=== PATIENT | female | born 1990 | race Caucasian/White ===

== ENCOUNTER 2019-08-10 11:35 | Inpatient (IN) ==
--- OUTSIDE RECORDS SUMMARY | 2019-08-10 11:42 | External Medical Summary | Continuity of Care Document ---
:1990 Author Name John Grover, Provider Address Unavailable Unavailable , Care Team Providers Name Role Phone Marcial Grover, Maikel Unavailable [email or web address] Active medical history not documented Allergies and Adverse Reactions Allergy history not documented Medications Medications not documented Procedures Procedures not documented Immunizations Immunizations not documented Plan of Treatment Planned Observations Planned Goals not documented Results No Known Results Results not documented
[2019-08-10] MEDS ORDERED: OXYTOCIN 30 UNITS/500 ML BAG IV PRN ×3 (13:26→22:29)
[2019-08-10] MEDS: LACTATED RINGER'S 1,000 ML IV PRN ×2 (13:43→15:11)
[2019-08-10] MEDS ORDERED: fentaNYL citrate 100 MCG/2 ML VIAL ONE (13:50)
[2019-08-10] MEDS ORDERED: ePHEDrine sulfate 50 MG/ML AMP ONE (13:51)
[2019-08-10] MEDS ORDERED: fentaNYL 2MCG/ML ROPIV 1.25MG/ML 100 ML BAG EPI ONE (13:51)
[2019-08-10] MEDS ORDERED: BUPIVACAINE 0.25% 30 ML VIAL ONE (13:51)
[2019-08-10 13:57] LABS: Hematocrit (blood only) 37.2 % (37-47); Hemoglobin 12.5 g/dL (12.0-16.0); Mean Corpuscular Volume 83.4 fL (80-100); Mean Platelet Volume 11.7 fL (7.4-10.4); Platelet Count 158 K/uL (130-400); RDW Coefficient of Variation 12.4 % (11.5-14.5); RDW Standard Deviation 37.6 fL (36.4-46.3); Red Blood Count 4.46 M/uL (4.2-5.4); White Blood Count 11.22 K/uL (4.8-10.8)
[2019-08-10 14:14] LABS: Mean Corpuscular Hgb Conc 33.6 g/dL (32-36)
--- NOTE | 2019-08-10 14:17 | Anesthesiology Consultation ---
Date of Service August 10, 2019 Assessment & Plan (1) Encounter for pre-operative examination: Chart Review Chart Review: Acceptable Risk for Labor Epidural Consults Requested none ASA ASA2 Proposed Anesthesia Anesthesia Type: Labor Epidural Risk / Benefits Reviewed With: PT / POA / Parent / Guardian, Accepts Plan and Informed Consent Obtained History Height/Weight Height: 5 ft 6 in Weight: 65.771 kg Allergies Allergy/AdvReac Type Severity Reaction Status Date / Time AUGMENTIN-SWELLING AND HIVES Allergy Unknown Uncoded 12/21/03 13:23 Medications Home Medications Medication Instructions Recorded Confirmed Last Taken venlafaxine [Effexor XR] 37.5 mg PO DAILY 08/10/19 08/10/19 08/10/19 09:30 Active Medications Generic Name Dose Route Start Last Admin Trade Name Freq PRN Reason Stop Dose Admin Lactated Ringer's 1,000 mls @ 125 mls/hr 08/10/19 13:26 08/10/19 13:43 Lr IV 08/12/19 13:25 999 mls/hr .Q8H PRN Administration L&D Protocol Protocol Exercise / Class Metabolic Activity II 4-5 Yardwork/Stairs/Walk up hill Past Family History Family History Aunt Breast cancer Father Hypertension Past Surgical History Surgical History H/O wisdom tooth extraction (~11/24/07) History of extraction of renal calculus (~06/28/08) Past Anesthesia History No Hx of Anesthesia Complications and No Family Hx of Anesthesia Complications History of PONV No Hx of PONV and No Hx of Motion Sickness Social History Smoking Status: Never smoker Do You Dip or Chew Tobacco: No Hx Alcohol Use: No Hx Substance Use: No Physical Exam Vital Signs Last Vital Signs Temp 98.6 F 08/10/19 12:09 Pulse 85 08/10/19 14:06 Resp 20 08/10/19 12:09 BP 133/88 08/10/19 14:06 ENMT Mouth: no dentition abnormality Thyromental Distance: > or= 3.5 Finger Breadths Mallampati Class: II Neck normal visual inspection Respiratory normal respiratory effort Auscultation: lungs clear to auscultation bilaterally Cardiovascular Rate/Rhythm: regular rate and regular rhythm Testing Laboratory Results 08/10/19 13:40
[2019-08-10] MEDS ORDERED: NALOXONE HCL 1 MG in SODIUM CHLORIDE 0.9% 1000ML 1,000 ML IV PRN (14:39)
[2019-08-10] MEDS ORDERED: NALOXONE HCL 0.4 MG/1 ML VIAL/CARP IV PRN (14:39)
[2019-08-10] MEDS ORDERED: ONDANSETRON INJ 2 MG/ML 2 ML VIAL IV PRN (14:39)
[2019-08-10] MEDS ORDERED: ePHEDrine sulfate 50 MG/ML AMP IV PRN (14:39)
[2019-08-10] MEDS ORDERED: fentaNYL 2MCG/ML ROPIV 1.25MG/ML 100 ML BAG EPI PRN (14:39)
[2019-08-10] MEDS ORDERED: NALBUPHINE HCL INJ 10 MG/ML AMP IV PRN (14:39)
[2019-08-10] MEDS ORDERED: DiphenhydrAMINE HCL 50 MG/ML VIAL IV PRN (14:39)
[2019-08-10] MEDS ORDERED: BENZOCAINE 20% AER SPR 82.5 GM CAN EXT PRN (22:29)
[2019-08-10] MEDS ORDERED: ACETAMINOPHEN 325 MG TAB PO PRN (22:29)
[2019-08-10] MEDS ORDERED: ACETAMINOPHEN W/CODEINE #3 1 TAB PO PRN (22:29)
[2019-08-10] MEDS ORDERED: bisacodyL 10 MG SUPP PR PRN (22:29)
[2019-08-10] MEDS ORDERED: HYDROCORTISONE ACETATE 25 MG SUPP PR PRN (22:29)
[2019-08-10] MEDS ORDERED: SUPERCREAM 0.870% 15 GM JAR EXT PRN (22:29)
[2019-08-10] MEDS ORDERED: DIPHTHERIA/TETANUS/PERTUSSIS 0.5 ML SYR/VIAL IM ONE (22:29)
[2019-08-10] MEDS ORDERED: OXYCODONE/ACETAMINOPHEN 5mg/325mg TAB PO PRN (22:29)
[2019-08-10] MEDS: IBUPROFEN 600 MG TAB PO PRN (23:20)
--- NOTE | 2019-08-11 03:24 | Delivery Summary ---
DATE OF OPERATION: 08/10/2019 The patient is a 29-year-old 1, para 1. Blood type is O positive, vaginal beta strep negative. She was admitted in active labor at 40 weeks and 1 day gestation. Soon after admission, membranes ruptured spontaneously during the exam and she was given epidural anesthesia from which she obtained good pain relief. Her labor was then augmented with Pitocin, she went to full dilatation, pushed out a live male via direct occiput anterior position over an intact perineum. was suctioned through the mouth and the nose. Shoulders were delivered without difficulty. Cord was clamped, cut by the father. Cord blood was taken. IV Pitocin was used to contract the uterus, the placenta was removed intact. There was a small superficial first degree laceration at about 5 o'clock in the vaginal introitus and this was repaired with a running 2-0 Vicryl. Following this, hemostasis was good. ESTIMATED BLOOD LOSS: 100 mL. Apgars deferred to the nurses. The patient tolerated the procedure well. I attest to the content of the Intraoperative Record and any orders documented therein. Any exception s are noted below.
[2019-08-11 06:53] LABS: Hematocrit (blood only) 33.2 % (37-47); Hemoglobin 11.1 g/dL (12.0-16.0); Mean Corpuscular Hemoglobin 28.2 pg (25-34); Mean Corpuscular Hgb Conc 33.4 g/dL (32-36); Mean Corpuscular Volume 84.3 fL (80-100); Mean Platelet Volume 11.9 fL (7.4-10.4); Platelet Count 129 K/uL (130-400); RDW Coefficient of Variation 12.5 % (11.5-14.5); RDW Standard Deviation 38.2 fL (36.4-46.3); Red Blood Count 3.94 M/uL (4.2-5.4); White Blood Count 15.28 K/uL (4.8-10.8)
[2019-08-11] MEDS: IBUPROFEN 600 MG TAB PO PRN ×2 (08:51→20:05)
[2019-08-11] MEDS: DOCUSATE SODIUM 100 MG CAP PO SCH ×2 (08:51→20:04)
[2019-08-11] MEDS: PRENATAL VITAMIN 1 TAB PO SCH (08:51)
[2019-08-11] MEDS: VENLAFAXINE HCL XR 37.5 MG CAPXR PO SCH (08:51)
--- NOTE | 2019-08-11 09:02 | Anesthesia Procedure Note ---
Date of Service August 11, 2019 Anesthesia Post Epidural Note Vital Signs Vital Signs: Temp Pulse Resp BP Pulse Ox 36.5 C 79 14 139/86 100 08/11/19 07:47 08/11/19 07:47 08/11/19 07:47 08/11/19 07:47 08/11/19 07:47 Pain Intensity Abdomen: Pain Intensity: 1 Notes Mental Status: alert / awake / arousable and participated in evaluation Patient Amnestic to Procedure: Yes Nausea / Vomiting: adequately controlled Pain: adequately controlled Airway Patency, RR, SpO2: stable & adequate BP & HR: stable & adequate Hydration State: stable & adequate Anesthetic Complications: no major complications apparent and Pt Satisfied with anesthetic care
[2019-08-11] MEDS ORDERED: bisacodyL 5 MG TABEC PO SCH (20:00)
[2019-08-12 06:21] LABS: Hematocrit (blood only) 36.9 % (37-47); Hemoglobin 12.2 g/dL (12.0-16.0)
[2019-08-12] MEDS: DOCUSATE SODIUM 100 MG CAP PO SCH (08:49)
[2019-08-12] MEDS: PRENATAL VITAMIN 1 TAB PO SCH (08:49)
[2019-08-12] MEDS: VENLAFAXINE HCL XR 37.5 MG CAPXR PO SCH (08:49)
--- NOTE | 2019-08-12 10:25 | Obstetrical Progress Note ---
Date of Service August 12, 2019 Assessment & Plan Admission and Anticipated Discharge Date Admission Date: August 10, 2019 Physical Exam Constitutional: WD/WN, vitals as above comfortable abdomen soft no edema neg Deric's for discharge Results & Data ([facility]) Vital Signs (Past 12 Hours) Vital Signs Temp Pulse Resp BP Pulse Ox 08/12/19 09:45 36.4 C L 76 18 128/80 100 08/11/19 23:15 36.6 C 68 18 126/76
== END 2019-08-12 14:30 | disposition home or self-care (01) | DRG 807 ==
LOC: OPB 11:35 → 4S1 11:40 → 4S2 08-11 01:00

== ENCOUNTER 2023-05-27 07:16 | Inpatient (IN) ==
[2023-05-27] MEDS ORDERED: SODIUM CHLORIDE 0.9% PF INJ 10 ML VIAL ONE (07:27)
[2023-05-27] MEDS ORDERED: fentaNYL citrate PF 100 MCG/2 ML VIAL ONE (07:27)
[2023-05-27] MEDS ORDERED: ePHEDrine sulfate 50 MG/ML AMP ONE (07:27)
[2023-05-27] MEDS ORDERED: fentANYL 2 MCG/ML BUPIVacaine 0.125%-NSS 100ML BAG ONE (07:28)
[2023-05-27] MEDS ORDERED: BUPIVACAINE 0.25% PF 30 ML VIAL ONE (07:28)
[2023-05-27] MEDS ORDERED: LIDOCAINE 2%/EPINEPHRINE 1:200,000 20 ML PF ONE (07:28)
[2023-05-27] MEDS ORDERED: OXYTOCIN 30 UNITS/NSS 30 UNITS/500 ML BAG IV PRN ×3 (07:34→17:13)
[2023-05-27] MEDS ORDERED: LIDOCAINE 1% LOCAL 20 ML VIAL INFIL PRN (07:34)
[2023-05-27] MEDS: LACTATED RINGER'S 1,000 ML IV PRN ×3 (07:40→13:59)
[2023-05-27] MEDS ORDERED: ROPIVACAINE 0.5% PF 5 MG/ML 20 ML VIAL EPI PRN (08:06)
[2023-05-27] MEDS ORDERED: NALOXONE HCL 1 MG in SODIUM CHLORIDE 0.9% 1,000 ML IV PRN (08:06)
[2023-05-27] MEDS ORDERED: SODIUM CHLORIDE 0.9% PF INJ 10 ML VIAL EPI STA (08:06)
[2023-05-27] MEDS ORDERED: NALOXONE HCL 0.4 MG/1 ML VIAL/CARP IV PRN (08:06)
[2023-05-27] MEDS ORDERED: BUPIVACAINE 0.25% PF 30 ML VIAL EPI STA (08:06)
[2023-05-27] MEDS ORDERED: diphenhydrAMINE 50 MG/ML VIAL IV PRN (08:06)
[2023-05-27] MEDS ORDERED: NALBUPHINE HCL 5 MG in SYRINGE 0 ML IV PRN (08:06)
[2023-05-27] MEDS ORDERED: fentaNYL citrate PF 100 MCG/2 ML VIAL EPI STA (08:06)
[2023-05-27] MEDS ORDERED: LIDOCAINE 2% MPF LOCAL 5 ML VIAL EPI PRN (08:06)
[2023-05-27] MEDS ORDERED: ePHEDrine sulfate 50 MG/ML AMP IV PRN (08:06)
[2023-05-27] MEDS ORDERED: SODIUM CHLORIDE 0.9% PF INJ 10 ML VIAL EPI PRN (08:06)
[2023-05-27] MEDS ORDERED: fentaNYL citrate PF 100 MCG/2 ML VIAL EPI PRN (08:06)
[2023-05-27] MEDS ORDERED: LIDOCAINE 2%/EPINEPHRINE 1:200,000 20 ML PF EPI STA (08:06)
[2023-05-27] MEDS ORDERED: fentANYL 2 MCG/ML BUPIVacaine 0.125%-NSS 100ML BAG EPI PRN (08:06)
[2023-05-27] MEDS ORDERED: ONDANSETRON INJ 2 MG/ML 2 ML VIAL IV PRN (08:06)
[2023-05-27] MEDS ORDERED: BUPIVACAINE 0.25% PF 30 ML VIAL EPI PRN (08:06)
--- NOTE | 2023-05-27 08:07 | Anesthesiology Consultation ---
Date of Service May 27, 2023 Assessment & Plan ASA ASA2 Proposed Anesthesia Anesthesia Type: Labor Epidural Risk / Benefits Reviewed With: PT / POA / Parent / Guardian, Accepts Plan and Informed Consent Obtained History Height/Weight Height: 5 ft 6 in Weight: 64.864 kg Allergies Allergy/AdvReac Type Severity Reaction Status Date / Time AUGMENTIN-SWELLING AND HIVES Allergy Unknown Rash Uncoded 05/27/23 07:44 Medications Home Medications Medication Instructions Recorded Confirmed Last Taken venlafaxine 37.5 mg 37.5 mg PO DAILY 08/10/19 05/27/23 05/27/23 capsule,extended release 24 hr (Effexor XR) Active Medications Generic Name Dose Route Start Last Admin Trade Name Freq PRN Reason Stop Dose Admin Lactated Ringer's 1,000 mls @ 125 mls/hr 05/27/23 07:34 05/27/23 09:02 Lr IV 05/29/23 07:33 125 mls/hr .Q8H PRN Infusion L&D Protocol Protocol Past Medical History Medical History Dysplastic nevus of trunk Anxiety Normal endoscopy (~03/27/14) Encounter for diagnostic colonoscopy due to change in bowel habits (~03/27/14) Exercise / Class Metabolic Activity II 4-5 Yardwork/Stairs/Walk up hill Past Family History Family History Aunt Breast cancer Father Hypertension Past Surgical History Surgical History History of colposcopy with cervical biopsy History of extraction of renal calculus (~06/28/08) H/O wisdom tooth extraction (~11/24/07) Past Anesthesia History No Hx of Anesthesia Complications and No Family Hx of Anesthesia Complications History of PONV No Hx of PONV and No Hx of Motion Sickness Social History Smoking Status: Never smoker Do You Dip or Chew Tobacco: No Hx Alcohol Use: No Hx Substance Use: No substance use type: does not use Review of Systems denies fever/cough/ colds/ chest pain/ SOB/ TORSTEN denies TORSTEN Physical Exam Vital Signs Last Vital Signs Temp 36.7 C 05/27/23 07:40 Pulse 82 05/27/23 09:11 Resp 18 05/27/23 07:40 BP 120/79 05/27/23 09:11 Pulse Ox 100 05/27/23 09:11 ENMT Mouth: no TMJ abnormality and no dentition abnormality Thyromental Distance: > or= 3.5 Finger Breadths Mallampati Class: II Neck neck extension not limited Respiratory normal respiratory effort; no respiratory distress Auscultation: lungs clear to auscultation bilaterally Cardiovascular Rate/Rhythm: regular rate and regular rhythm Neurologic moves all extremities Psychiatric Orientation: alert and oriented x 3 Testing Laboratory Results 05/27/23 08:02
[2023-05-27 08:18] LABS: Hematocrit (blood only) 34.7 % (37.0-47.0); Hemoglobin 11.6 g/dl (12.0-16.0); Mean Corpuscular Hemoglobin 27.4 pg (25.0-34.0); Mean Corpuscular Hgb Conc 33.4 g/dL (32.0-36.0); Mean Platelet Volume 10.9 fL (9.4-12.4); Platelet Count 185 K/uL (130-400); RDW Coefficient of Variation 12.4 % (11.5-14.5); RDW Standard Deviation 36.6 fL (36.4-46.3); Red Blood Count 4.23 M/uL (4.20-5.40); White Blood Count 10.31 K/ul (4.8-10.8)
--- OUTSIDE RECORDS SUMMARY | 2023-05-27 10:05 | External Medical Summary ---
Author Name Unknown Address Unknown Organization K01:[facility] [place] [facility] [address] [facility] [address] Laboratory Report Ordering Provider Test Date Status MARY CLEMENTE 04/29/2023 15:58:09 Final Observation Date Value Abnormality Reference (Units ) Status Streptococcus agalactiae DNA [Presence] in Specimen by BINH with probe detection 04/29/2023 15:58:09 Negative Negative Final No Group B Streptococcus det ected by culture-enhanced PCR (amplified probe).
The collection of vaginal/rectal swab specimen combinations (FDA approved specimen type) is optimal for the detection of Group B Streptococcus. Single source collection (vaginal only or rectal only) or alternate specimen sources may lead to false negative results. Performing Location [facility] [place] [facility] [address] [facility] [address]
--- OUTSIDE RECORDS SUMMARY | 2023-05-27 10:05 | External Medical Summary | Summary of Care ---
Author Name Unknown Organization [facility] Address [address] [place] [address] Phone [phone] Care Team Providers Care Construction Lineman Name Role Phone Clifford Bose MD Primary Care Provider Reason for Visit * Reason Comments Return Visit Encounter Details Date Type Department Care Team (Late st Contact Info) Description 05/06/2023 10:15 AM EST Office Visit Gynecology/Obstetric s Subha Sorensen [address] [place] [address] Katherine Urbina PA-C [address] [place] [address] Normal in third trimester*; Anxiety during ; History of gestational diabetes in prior , currently ; Normal in third trimester [Z34.93] Allergies Active Allergy Reactions Criticality Noted Date Comments Amoxicillin-Pot Clavulanate Hives Medium 07/29/19 14 documented as of this encounter (statuses as of 05/06/2023) Medications Medication Sig Dispensed Refills Start Date End Date Status Vitamin 27-0.8 MG Oral Tablet Take by mouth. 0 Active Venlafaxine HCl ER 37.5 MG Oral Capsule Extended Release 24 Hour (Effexor XR)Indications:Anxie ty TAKE 1 CAPSULE EVERY DAY. DO NOT CUT, CRUSH OR CHEW. 90 Capsule 0 03/11/2023 Active Breast PumpIndications:Kellee st feeding status of mother Z39.1, AMOL 05/22/23. Double electric pump 1 Each 0 03/17/2023 Active documented as of this encounter (statuses as of 05/06/2023) Active Problems Problem Noted Date Diagnosed Date Normal 11/12/2022 Anxiety during 11/12/2022 Overview: Effexor History of gestational diabe juanita in prior , currently 11/12/2022 H/O dysplastic nevus 03/13/2021 Overview: Mildly atypical nevui (R upper back), L upper abdomen, L distal thigh, dysplastic nevus on back in 6th grade) Anxiety Estimated Date of Delivery Comme nts Yes 05/22/2023 Based on last me nstrual period of 08/15/2022 (Exact Date) documented as of this encounter (statuses as of 05/06/2023) Resolved Problems Problem Noted Date Diagnosed Date Resolved Date Anxiety in , antepartum 12/24/2018 11/23/2019 Overview: At NOB taking Effexor, doing well, desires to continue , normal first 12/24/201811/13 Overview: Tdap vaccine administered 07/12/2019 Anais Stallings RN IOL scheduled for 08/16/19 Reema Romero LPN Last Assessment & Plan: Patient given flu vaccine. 06/09/2019 Verónica Godoy LPN Encounter for surveillance of abnormal nevi 03/01/2018 11/23/2019 Overview: Mildly dysplastic nevus (R upper back), dysplastic nevus on back in 6th grade? Encounter for surveillance of abnormal nevi 02/23/2017 01/01/2018 Overview: Mildly dysplastic nevus (R upper back) documented as of this encounter (statuses as of 05/06/2023) Immunizations Name Administration Dates Next Due COVID-19 mRNA, LNP-s, No Pre serve, 2-Dose Series (Moderna) 11/08/2020,10/09/2020 COVID-19, mRNA, LNP-s, PF, B ooster, 100mcg/0.5mg (Moderna) 06/06/2021 DTaP Dipth/Tet/Acell Pertussis (Infanrix), Peds 05/15/1994,01/06/1991,1989,1989,1989 HEP B - Hepatitis B (Adole/H igh Risk Ped, 11-15 yrs 09/21/2001,05/26/2001,04/15/2001 HPV Vaccine, 4-Valent 06/24/2012,12/24/2011,10/14 Haemophilius B (HIB), unspecified 09/16/1990 IPV - Polio Virus Vaccine (Inact) 1993,01/06/1990,1989,1989 MMR - Measles/Mumps/Rubella Vaccine 05/15/1994,0 09/16/1990 SEASONAL INFLUENZA, PF, 6 M & Above, IM , (FLULAVAL or FLUZONE) 03/17/2023,05/24/2020 Seasonal Influenza, Quadriva lent, No Preserve, IM 06/09/2019,03/15/2017,03/25/2016 Seasonal Influenza, Split, I IV3, With Preserve, Inj 02/27/2013 TD, Preservative Free 09/12/2000 TDAP (age 10 and older)(Boostrix) 03/03/2023,,02/07/2012 Varicella Vaccine (Chicken Pox) 03/15/1995 documented as of this encounter Social History Tobacco Use Types Packs/Day Years Used Date Smoking Tobacco: Never Smokeless Tobacco: Never Alcohol Use Standard Drinks/Week Comments No 0 (1 standard drink = 0.6 oz pur e alcohol) PHQ-2 Answer Date Recorded PHQ-2 Score -1 03/05/2020 Hunger Vital Sign Answer Date Recorded Within the past 12 months, y ou worried that your food would run out before you got the money to buy more. Never true 03/03/20 23 Within the past 12 months, t he food you bought just didn't last and you didn't have money to get more. Never true 03/03/2023 Sontag Depression Scale Answer Date Recorded Sontag Depression Scale Total 3 03/17/2023 The thought of harming myself has occurred to me . Never 03/17/2023 Estimated Date of Delivery Comme nts Yes 05/22/2023 Based on last me nstrual period of 08/15/2022 (Exact Date) Sex and Gender Information Value Date Recorded Sex Assigned at Female 03/17/2023 1:38 PM EDT Gender Identity Female 03/17/2023 1:38 PM EDT Sexual Orientation Straight 03/17/2023 1: 38 PM EDT Job Start Date Occupation Industry Not on file Not on file Not on file documented as of this encounter Last Filed Vital Signs Vital Sign Reading Time Taken Comments Blood Pressure 102/76 05/06/2023 10:02 AM EST Pulse - - Temperature - - Respiratory Rate - - Oxygen Saturation - - Inhaled Oxygen Concentration - - Weight 62.1 kg (137 lb) 05/06/2023 10:02 AM EST Height 167.6 cm (5' 6") 05/06/2023 10:02 AM EST Body Mass Index 22.11 05/06/2023 10:02 AM EST documented in this encounter Progress Notes * Katherine Urbina PA-C - 05/06/2023 10:51 AM EST 37w5d Denies concerns. Denies LOF, VB. Reports intermittent contractions over last week. None this AM. Not severely painful, no timing or regularity. Labor precautions reviewed. FHT 160's with doppler -- NST completed as below ASSESSMENT assessment with Non-stress Test completed on 05/06/2023 at 37.5 weeks gestation for indication of tachycardia with doppler heart baseline: 140 bpm Variability: Moderate Decelerations: absent Accelerations: present Contractions: Present x 1, not felt by patient NST start time: 10:19 NST stop time: 10:46 NST strip reviewed, interpreted, and approved by OB provider, Katherine Urbina PA-C. NST strip stored in clinic storage file RTC in 1 week Katherine Urbina PA-C * Maria Elena Neumann LPN - 05/06/2023 10:10 AM EST 37w5d Denies concerns documented in this encounter Plan of Treatment Upcoming Encounters Date Type Department Care Team (Late st Contact Info) Description 05/13/2023 9:15 AM EST Office Visit Gynecology/Obstetrics [facility] [address] [place], [place] [address] Anais Olson, [place] [address] [facility] [place] [address] 2023 1:30 PM EST Office Visit Gynecology/Obstetrics [facility] [address] [place], [place] [address] More English CRNP [address] [place], [place] [address] 06/19/2023 3:30 PM EST Telemedicine Gynecology/Obstetrics [facility] [address] [place] [address] Manuela Dave, [place] [address] [facility] [place] [address] 07/06/2023 10:30 AM EST Office Visit Gynecology/Obstetrics [facility] [address] [place] [address] More English CRNP [address] [place], [place] [address] 08/31/2023 3:40 PM EDT Office Visit Dermatology [address] [place] [address] Aicha Solorzano PA-C [address] [place] [address] [place] [address] 12/10/2023 4:20 PM EDT Office Visit Family Medicine [address] [place] [phone] Sheela Rose MD [address] [place] [address] [place] [address] Health Maintenance Due Date Last Done Comments Depression Screening 11/22/2020 11/23/2019 COVID-19 Vaccine ( season) 2023 06/06/2021, 11/08/2020, 10/09/2020 Pap Smear 06/12/2025 06/12/2022, 02/13, 12/19/2019, Additional history exists Cervical Cancer Screening 06/12/2027 HPV/Co-Test 06/12/2027 06/12/2022 DTaP,Tdap,and Td Vaccines (9 - Td or Tdap) 03/03/2033 03/03/2023, 07/12/2019, 02/07/2012, Additional history exists Hepatitis B Completed 09/21/2001, 02/2002, 05/26/2001, Additional history exists GARDASIL-HPV IMMUNIZATION SERIES Completed 06/24/2012, 12/24/2011, 11/11/2011 Influenza Vaccine (FLU shot) Completed 08/2022, 05/24/2020, 06/09/2019, Additional history exists MENINGOCOCCAL (MENACTRA/MENVEO) Aged Out No longer eligible based on patient's age to complete this topic Pneumococcal Vaccine: Pediatrics (0 to 5 Years) and At-Risk Patients (6 to 64 Years) Aged Out No longer eligible based on patient's age to complete this topic documented as of this encounter Medical Devices Not on filedocumented as of this encounter Visit Diagnoses Diagnosis Normal in third trimester [Z34.93]- Primary Anxiety during History of gestational diabetes in prior , currently with other poor obstetric history documented in this encounter Care Teams Construction Lineman Relationship Specialty Start Date End Date Clifford Bose MD PCP - General Family Medicine 11/04/18 documented as of this encounter
--- OUTSIDE RECORDS SUMMARY | 2023-05-27 10:05 | External Medical Summary | Summary of Care ---
Author Name Unknown Organization [facility] Address [address] [place] [address] Phone [phone] Care Team Providers Care Document Management Consultant Name Role Phone Clifford Bose MD Primary Care Provider Reason for Visit * Reason Comments Return Visit Encounter Details Date Type Department Care Team (Late st Contact Info) Description 04/29/2023 3:15 PM EST Office Visit Gynecology/Obstetric s [facility] Sorensen [address] [place] [address] Irma Ramsay CRNP [address] [facility] [place] [address] Normal in third trimester*; Anxiety during ; History of gestational diabetes in prior , currently Allergies Active Allergy Reactions Criticality Noted Date Comments Amoxicillin-Pot Clavulanate Hives Medium 07/29/19 14 documented as of this encounter (statuses as of 04/29/2023) Medications Medication Sig Dispensed Refills Start Date [...] as of this encounter (statuses as of 04/29/2023) Active Problems Problem Noted Date Diagnosed Date [...] as of this encounter (statuses as of 04/29/2023) Resolved Problems Problem Noted Date Diagnosed Date [...] as of this encounter (statuses as of 04/29/2023) Immunizations Name Administration Dates Next Due COVID-19 [...] money to get more. Never true 03/03/2023 Hewlett Depression Scale Answer Date Recorded Hewlett Depression Scale Total 3 03/17/2023 The thought [...] Sign Reading Time Taken Comments Blood Pressure 100/66 04/29/2023 3:08 PM EST Pulse - - Temperature - - Respiratory Rate - - Oxygen Saturation - - Inhaled Oxygen Concentration - - Weight 62.9 kg (138 lb 9.6 oz) 04/29/2023 3:08 P M EST Height 167.6 cm (5' 6") 04/29/2023 3:08 PM EST Body Mass Index 22.37 04/29/2023 3:08 PM EST documented in this encounter Progress Notes * Irma Ramsay CRNP - 04/29/2023 3:23 PM EST 36w5d Complaints: none Feeling well overall. Good FM. No contractions, bleeding, or LOF. GBS today. Pump House Engineer Documentation Provider requested felt hat mellowing machine operator. Name of felt hat mellowing machine operator: JOSH Berg * Bev Hart LPN - 04/29/2023 3:11 PM EST 36w5d GBS today, pt denies any concerns. documented in this encounter Plan of Treatment Upcoming Encounters Date Type Department Care Team (Late st Contact Info) Description 05/06/2023 10:15 AM EST Office Visit Gynecology/Obstetrics Subha Sorensen [address] [place] [address] Katherine Urbina PA-C [address] [place] [address] 05/13/2023 9:15 AM EST Office Visit Gynecology/Obstetrics [facility] [address] [facility] [place] [address] Anais Olson, [facility] [address] [place] [address] 2023 1:30 PM EST Office Visit Gynecology/Obstetrics [facility] [address] [facility] [place] [address] More English CRNP [facility] [place] [address] 08/31/2023 3:40 PM EDT Office Visit Dermatology [address] [place] [address] Aicha Solorzano PA-C [address] [place] [address] [place] [address] 12/10/2023 4:20 PM EDT Office Visit Family Medicine [address] [place] [phone] Sheela Rose MD [address] [place] [address] [place] [address] Scheduled Orders Name Type Priority Associated Diagnoses Orde r Schedule GROUP B STREP CULTURE/PCR Lab Routine Normal in third trimester Ordered: 04/29/2023 Health Maintenance Due Date Last Done Comments [...] encounter Visit Diagnoses Diagnosis Normal in third trimester- Primary Anxiety during History of gestational diabetes in prior , currently with other poor obstetric history documented in this encounter Care Teams Document Management Consultant Relationship Specialty Start Date End Date Clifford Bose MD PCP - General Family Medicine 11/04/18 documented as of this encounter
--- OUTSIDE RECORDS SUMMARY | 2023-05-27 10:05 | External Medical Summary | Summary of Care ---
Author Name Unknown Organization [facility] Address [address] [place] [address] Phone [phone] Care Team Providers Care Supervisor Operations Name Role Phone Clifford Bose MD Primary Care Provider Reason for Visit * Reason Comments Return Visit Encounter Details Date Type Department Care Team (Late st Contact Info) Description 04/29/2023 3:15 PM EST Office Visit Gynecology/Obstetric s [facility] Sorensen [address] [place] [address] Irma Ramsay CRNP [address] [place] [address] Normal in third trimester*; Anxiety during ; [...] money to get more. Never true 03/03/2023 Herman Depression Scale Answer Date Recorded Herman Depression Scale Total 3 03/17/2023 The thought [...] No contractions, bleeding, or LOF. GBS today. [employer] Support Documentation Provider requested jig maker. Name of jig maker: JOSH Berg * Bev Hart LPN - 04/29/2023 3:11 PM EST 36w5d GBS today, pt denies any concerns. documented in this encounter Plan of Treatment Upcoming Encounters Date Type Department Care Team (Late st Contact Info) Description 05/06/2023 10:15 AM EST Office Visit Gynecology/Obstetrics Subha Sorensen [address] [place] [address] Katherine Urbina PA-C [address] [place] [address] 05/13/2023 9:15 AM EST Office Visit Gynecology/Obstetrics [facility] [address] [facility] [place] [address] Anais Olson, [facility] [address] [place] [address] 2023 1:30 PM EST Office Visit Gynecology/Obstetrics [facility] [address] [facility] [place] [address] More English CRNP [facility] [place] [address] 08/31/2023 3:40 PM EDT Office Visit Dermatology [address] [place] [address] Aicha Solorzano PA-C [address] [place] [address] [place] [address] 12/10/2023 4:20 PM EDT Office Visit Family Medicine [address] [place] [phone] Sheela Rose MD [address] [place] [address] [place] [address] Pending Results Name Type Priority Associated Diagnoses Date /Time GROUP B STREP CULTURE/PCR Lab Routine Normal in third trimester 04/29/2023 3:58 PM EST Health Maintenance Due Date Last Done Comments [...] history documented in this encounter Care Teams Supervisor Operations Relationship Specialty Start Date End Date Clifford Bose MD PCP - General Family Medicine 11/04/18 documented as of this encounter
--- OUTSIDE RECORDS SUMMARY | 2023-05-27 10:05 | External Medical Summary | Summary of Care ---
Author Name Unknown Organization [facility] Address [address] [place] [address] Phone [phone] Care Team Providers Care Learning Specialist Name Role Phone Clifford Bose MD Primary Care Provider Reason for Visit * Reason Comments Return Visit Encounter Details Date Type Department Care Team (Late st Contact Info) Description 04/15/2023 4:30 PM EDT Office Visit Gynecology/Obstetric s Subha Sorensen [address] [place] [address] Katherine Urbina PA-C [address] [place] [address] Normal in third trimester*; Anxiety during ; History of gestational diabetes in prior , currently Allergies Active Allergy Reactions Criticality Noted Date Comments Amoxicillin-Pot Clavulanate Hives Medium 07/29/19 14 documented as of this encounter (statuses as of 04/15/2023) Medications Medication Sig Dispensed Refills Start Date [...] as of this encounter (statuses as of 04/15/2023) Active Problems Problem Noted Date Diagnosed Date [...] as of this encounter (statuses as of 04/15/2023) Resolved Problems Problem Noted Date Diagnosed Date [...] as of this encounter (statuses as of 04/15/2023) Immunizations Name Administration Dates Next Due COVID-19 [...] money to get more. Never true 03/03/2023 [place] Depression Scale Answer Date Recorded [place] Depression Scale Total 3 03/17/2023 The thought [...] Sign Reading Time Taken Comments Blood Pressure 100/64 04/15/2023 4:13 PM EDT Pulse - - Temperature - - Respiratory Rate - - Oxygen Saturation - - Inhaled Oxygen Concentration - - Weight 62.6 kg (138 lb) 04/15/2023 4:13 PM EDT Height 167.6 cm (5' 6") 04/15/2023 4:13 PM EDT Body Mass Index 22.27 04/15/2023 4:13 PM EDT documented in this encounter Progress Notes * Katherine Urbina PA-C - 04/15/2023 4:27 PM EDT 34w5d Without complaints. Nausea finally improved. Denies VB, LOF, ctx. Pos fm. Reviewed GBS with next visit. Call with questions or concerns. RTC in 2 weeks Katherine Urbina PA-C * Bev Hart LPN - 04/15/2023 4:18 PM EDT 34w5d Pt denies any concerns. documented in this encounter Plan of Treatment Upcoming Encounters Date Type Department Care Team (Late st Contact Info) Description 04/29/2023 3:15 PM EST Office Visit Gynecology/Obstetrics Subha Sorensen [address] [place] [address] Irma Ramsay CRNP [address] [place] [address] 08/31/2023 3:40 PM EDT Office Visit Dermatology [address] [place] [address] Aicha Solorzano PA-C [address] [place] [address] [place] [address] 12/10/2023 4:20 PM EDT Office Visit Family Medicine [address] [phone] Sheela Rose MD [address] [place] [address] [place] [address] Health Maintenance Due Date Last Done Comments Depression Screening 11/22/2020 11/23/2019 COVID-19 Vaccine ( season) 2023 06/06/2021, 11/08/2020, 10/09/2020 Pap Smear 06/12/2025 06/12/2022, 02/13, 12/19/2019, Additional history exists Cervical Cancer Screening 06/12/2027 HPV/Co-Test 06/12/2027 06/12/2022 DTaP,Tdap,and Td Vaccines (9 - Td or Tdap) 03/03/2033 03/03/2023, 07/12/2019, 02/07/2012, Additional history exists Hepatitis B Completed 09/21/2001, 05/15, 04/15/2001 GARDASIL-HPV IMMUNIZATION SERIES Completed 06/24/2012, 12/24/2011, 11/11/2011 [...] history documented in this encounter Care Teams Learning Specialist Relationship Specialty Start Date End Date Clifford Bose MD PCP - General Family Medicine 11/04/18 documented as of this encounter
--- OUTSIDE RECORDS SUMMARY | 2023-05-27 10:05 | External Medical Summary | Summary of Care ---
Author Name Unknown Organization [facility] Address [address] [place] [address] Phone [phone] Care Team Providers Care Supervisor Wood Crew Name Role Phone Clifford Bose MD Primary Care Provider Reason for Visit * Reason Comments Return Visit Encounter Details Date Type Department Care Team (Late st Contact Info) Description 2023 1:30 PM EST Office Visit Gynecology/Obstetric s Subha Sorensen [address] [place] [address] More English CRNP [address] [place] [address] Normal in third trimester*; Anxiety during ; History of gestational diabetes in prior , currently Allergies Active Allergy Reactions Criticality Noted Date Comments Amoxicillin-Pot Clavulanate Hives Medium 07/29/19 14 documented as of this encounter (statuses as of 2023) Medications Medication Sig Dispensed Refills Start Date End Date Status Vitamin 27-0.8 MG Oral Tablet Take by mouth. 0 Active Venlafaxine HCl ER 37.5 MG Oral Capsule Extended Release 24 Hour (Effexor XR)Indications:Anxie ty TAKE 1 CAPSULE EVERY DAY. DO NOT CUT, CRUSH OR CHEW. 90 Capsule 0 03/11/2023 Active Breast PumpIndications:Kellee st feeding status of mother Z39.1, AMOL 12/8/23. Double electric pump 1 Each 0 03/17/2023 Active documented as of this encounter (statuses as of 2023) Active Problems Problem Noted Date Diagnosed Date [...] as of this encounter (statuses as of 2023) Resolved Problems Problem Noted Date Diagnosed Date [...] as of this encounter (statuses as of 2023) Immunizations Name Administration Dates Next Due COVID-19 [...] money to get more. Never true 03/03/2023 [place] Depression Scale Answer Date Recorded [place] Depression Scale Total 3 03/17/2023 The thought [...] Sign Reading Time Taken Comments Blood Pressure 116/70 2023 1:18 PM EST Pulse - - Temperature - - Respiratory Rate - - Oxygen Saturation - - Inhaled Oxygen Concentration - - Weight 64.2 kg (141 lb 9.6 oz) 2023 1:18 P M EST Height - - Body Mass Index 22.85 05/13/2023 9:07 AM EST documented in this encounter Progress Notes * More English CRNP - 2023 1:30 PM EST 39w4d Doing well, good movement. No leaking/bleeding. Had 1 day last week of consistent contractions every 8-10 mins. No longer experiencing these, but notes increased cramping. SVE 2-3/50%. Reviewedlabor precautions. Has induction scheduled. Return in 1 week. Historic Sites Supervisor Documentation Provider requested machine cell tuber. Name of machine cell tuber: JOSH Schaefer LPN * Benita Carroll LPN - 2023 1:18 PM EST 39w4d Denies vaginal bleeding/rom + movement Has been having a lot of cramping Had a day of consistent contractions but then they slowed down. Would like cervical check today documented in this encounter Plan of Treatment Upcoming Encounters Date Type Department Care Team (Late st Contact Info) Description 05/25/2023 9:00 AM EST Office Visit Gynecology/Obstetrics [facility] [address] [place] [address] Katherine Urbina PA-C [address] [place] [address] 06/19/2023 3:30 PM EST Telemedicine Gynecology/Obstetrics [facility] [address] [facility] [place], [place] [address] Manuela Dave, [facility] [address] [facility] [address] 07/06/2023 10:30 AM EST Office Visit Gynecology/Obstetrics [facility] [address] [facility] [place] [address] More English CRNP [address] [place] [address] 08/31/2023 3:40 PM EDT Office Visit Dermatology [address] [place] [address] Aicha Solorzano PA-C [address] [place] [address] [place] [address] 12/10/2023 4:20 PM EDT Office Visit Family Medicine [address] [place] [phone] Sheela Rose MD [address] [place] [address] [place] [address] Health Maintenance Due Date Last Done Comments [...] documented in this encounter Care Teams Supervisor Wood Crew Relationship Specialty Start Date End Date Clifford Bose MD PCP - General Family Medicine 11/04/18 documented as of this encounter
--- OUTSIDE RECORDS SUMMARY | 2023-05-27 10:05 | External Medical Summary | Summary of Care ---
Author Name Unknown Organization [facility] Address [address] [place] [address] Phone [phone] Care Team Providers Care Saturator Tender Name Role Phone Clifford Bose MD Primary Care Provider Reason for Visit * Reason Comments Return Visit Encounter Details Date Type Department Care Team ([facility] st Contact Info) Description 05/25/2023 9:00 AM EST Office Visit Gynecology/Obstetric s Subha Sorensen [address] [place] [address] Katherine Urbina PA-C [address] [place] [address] Normal in third trimester*; Anxiety during ; History of gestational diabetes in prior , currently Allergies Active Allergy Reactions Criticality Noted Date Comments Amoxicillin-Pot Clavulanate Hives Medium 07/29/19 14 documented as of this encounter (statuses as of 05/25/2023) Medications Medication Sig Dispensed Refills Start Date [...] as of this encounter (statuses as of 05/25/2023) Active Problems Problem Noted Date Diagnosed Date [...] as of this encounter (statuses as of 05/25/2023) Resolved Problems Problem Noted Date Diagnosed Date [...] as of this encounter (statuses as of 05/25/2023) Immunizations Name Administration Dates Next Due COVID-19 [...] money to get more. Never true 03/03/2023 [place] Depression Scale Answer Date Recorded [place] Depression Scale Total 3 03/17/2023 The thought [...] Sign Reading Time Taken Comments Blood Pressure 136/78 05/25/2023 8:51 AM EST Pulse - - Temperature - - Respiratory Rate - - Oxygen Saturation - - Inhaled Oxygen Concentration - - Weight 64.9 kg (143 lb) 05/25/2023 8:51 AM EST Height 167.6 cm (5' 6") 05/25/2023 8:51 AM EST Body Mass Index 23.08 05/25/2023 8:51 AM EST documented in this encounter Progress Notes * Katherine Urbina PA-C - 05/25/2023 9:17 AM EST 40w3d Doing well, desires cervical check. Hoping to avoid IOL scheduled in 2 days. Contractions, no regularity or timing. Denies LOF, VB. Baby is active. Wool Shearer Documentation Provider requested pharmacology professor. Name of pharmacology professor: LOR Arredondo RTC for appointments Katherine Urbina PA-C * Maria Elena Neumann LPN - 05/25/2023 8:54 AM EST 40w3d Denies concerns. documented in this encounter Plan of Treatment Upcoming Encounters Date Type Department Care Team (Late st Contact Info) Description 06/19/2023 3:30 PM EST Telemedicine Gynecology/Obstetrics [address] [place] [address] Manuela Dave CNM [address] [place] [address] 07/06/2023 10:30 AM EST [facility] [address] [place] [address] [place], JOSH Tran [address] [place] [address] 08/31/2023 3:40 PM EDT Office Visit Dermatology [address] [place] [address] Aicha Solorzano PA-C [address] [place] [address] [place] [address] 12/10/2023 4:20 PM EDT Office Visit Family Medicine [address] [place] [phone] Sheela Rose MD [address] [place] [address] [place] [address] Health Maintenance Due Date Last Done Comments Depression Screening 11/22/2020 11/23/2019 COVID-19 Vaccine ( season) 2023 06/06/2021, 11/08/2020, 10/09/2020 Pap Smear 06/12/2025 06/12/2022, 02/13, 12/19/2019, Additional history exists Cervical Cancer Screening 06/12/2027 HPV/Co-Test 06/12/2027 06/12/2022 DTaP,Tdap,and Td Vaccines (9 - Td or Tdap) 03/03/2033 03/03/2023, 07/12/2019, 02/07/2012, Additional history exists Hepatitis B Completed 09/21/2001, 040 02/2002, 05/26/2001, Additional history exists GARDASIL-HPV IMMUNIZATION [...] history documented in this encounter Care Teams Saturator Tender Relationship Specialty Start Date End Date Clifford Bose MD PCP - General Family Medicine 11/04/18 documented as of this encounter
--- OUTSIDE RECORDS SUMMARY | 2023-05-27 10:05 | External Medical Summary | Summary of Care ---
Author Name Unknown Organization [facility] Address [address] [place] [address] Phone [phone] Care Team Providers Care Content Curator Name Role Phone Clifford Bose MD Primary Care Provider [phone] Reason for Visit * Reason Comments Return Visit Encounter Details Date Type Department Care Team ([facility] st Contact Info) Description 05/13/2023 9:15 AM EST Office Visit Gynecology/Obstetric s [facility] [address] [place] [address] Anais Olson, [facility] [address] [place] [address] Normal intrauterine , antepartum*; Anxiety during ; History of gestational diabetes in prior , currently Allergies Active Allergy Reactions Criticality Noted Date Comments Amoxicillin-Pot Clavulanate Hives Medium 07/29/19 14 documented as of this encounter (statuses as of 05/13/2023) Medications Medication Sig Dispensed Refills Start Date End Date Status Vitamin 27-0.8 MG Oral Tablet Take by mouth. 0 Active Venlafaxine HCl ER 37.5 MG Oral Capsule Extended Release 24 Hour (Effexor XR)Indications:Anxie ty TAKE 1 CAPSULE EVERY DAY. DO NOT CUT, CRUSH OR CHEW. 90 Capsule 0 03/11/2023 Active Breast PumpIndications:Cadott st feeding status of mother Z39.1, AMOL 05/22/23. Double electric pump 1 Each 0 03/17/2023 Active documented as of this encounter (statuses as of 05/13/2023) Active Problems Problem Noted Date Diagnosed Date [...] as of this encounter (statuses as of 05/13/2023) Resolved Problems Problem Noted Date Diagnosed Date [...] as of this encounter (statuses as of 05/13/2023) Immunizations Name Administration Dates Next Due COVID-19 [...] money to get more. Never true 03/03/2023 [place] Depression Scale Answer Date Recorded [place] Depression Scale Total 3 03/17/2023 The thought [...] Sign Reading Time Taken Comments Blood Pressure 108/68 05/13/2023 9:07 AM EST Pulse - - Temperature - - Respiratory Rate - - Oxygen Saturation - - Inhaled Oxygen Concentration - - Weight 64.4 kg (142 lb) 05/13/2023 9:07 AM EST Height 167.6 cm (5' 6") 05/13/2023 9:07 AM EST Body Mass Index 22.92 05/13/2023 9:07 AM EST documented in this encounter Progress Notes * Anais Olson CNM - 05/13/2023 9:13 AM EST 38w5d Doing well overall, some cramping off and on but no contractions. Increased pelvic pressure. SVE: 2.5/50%/-3 Vertex PP contraception: mini pill / condoms Reviewed labor precautions, kick counts, loss of fluid, vaginal bleeding, round ligament pain, and encouraged hydration. IOL 05/27/2023 @ 0700 RTO in 1 week. * Zoe Britt LPN - 05/13/2023 9:07 AM EST 38w5d Would like cervix checked documented in this encounter Plan of Treatment Upcoming Encounters Date Type Department Care Team (Late st Contact Info) Description 2023 1:30 PM EST Office Visit Gynecology/Obstetrics [facility] [address] [facility] [place] [address] BackMore ruvalcaba CRNP [address] [place] [address] 06/19/2023 3:30 PM EST Telemedicine Gynecology/Obstetrics [facility] [address] [place] [address] Manuela Dave, [facility] [address] [facility] [place] [address] 07/06/2023 10:30 AM EST Office Visit Gynecology/Obstetrics [facility] [address] [place] [address] BackMore ruvalcaba CRNP [address] [place] [address] 08/31/2023 3:40 PM EDT Office Visit Dermatology [address] [place] [address] Aicha Solorzano PA-C [address] [place] [address] [place] [address] 12/10/2023 4:20 PM EDT Office Visit Family Medicine [address] [place] [phone] Sheela Rose MD [address] [place] [address] [place] [address] Health Maintenance Due Date Last Done Comments [...] of this encounter Visit Diagnoses Diagnosis Normal intrauterine , antepartum- Primary Anxiety during History of gestational diabetes in prior , currently with other poor obstetric history documented in this encounter Care Teams Content Curator Relationship Specialty Start Date End Date Clifford Bose MD PCP - General Family Medicine 11/04/18 documented as of this encounter
--- OUTSIDE RECORDS SUMMARY | 2023-05-27 10:06 | External Medical Summary ---
Author Name Unknown Address Unknown Organization K01[place] [place] [address] [place] [address] Laboratory Report Ordering Provider Test Date Status AUTUMNBACKER 03/03/2023 09:49:25 Final Observation Date Value Abnormality Reference (Units ) Status WBC, Total 03/03/2023 09:49:25 10.26 4.00-10.8 0 (K/uL) Final RBC 03/03/2023 09:49:25 4.02 3.85-5.15 (M/uL) Final Hemoglobin 03/03/2023 09:49:25 12.0 12.0-15.3 (g/dL) Final Anemia reflex testing trigge rs on a HGB < 12.0 for Females and HGB < 13.0 for Males in accordance with the WHO Anemia Guidelines
Anemia reflex testing triggers on a HGB < 12.0 for Females and HGB < 13.0 for Males in accordance with the WHO Anemia Guidelines HCT 03/03/2023 09:49:25 37.0 36.0-45.2 (%) Final MCV 03/03/2023 09:49:25 92.0 81.5-97.5 (fL) Final MCH 03/03/2023 09:49:25 29.9 27.0-34.0 (pg) Final MCHC 03/03/2023 09:49:25 32.4 32.0-36.0 (g/dL) Final RDW 03/03/2023 09:49:25 12.2 11.5-15.5 (%) Final Platelets 03/03/2023 09:49:25 201 140-400 (K /uL) Final MPV 03/03/2023 09:49:25 10.6 6.6-11.1 ( fL) Final Nucleated erythrocytes/100 leukocytes [Ratio] in Blood by Automated count 03/03/2023 09:49:25 0 <=0 (/100 WBCs) Fi nal Performing Location [facility] - [address] [place] [address]
--- OUTSIDE RECORDS SUMMARY | 2023-05-27 10:06 | External Medical Summary | Summary of Care ---
Author Name Unknown Organization [facility] Address [address] [place] [address] Phone [phone] Care Team Providers Care Wildlife Forensic Geneticist Name Role Phone Emilia Figueroa MD Primary Care Provider Reason for Visit * Reason Comments eRx-Medication Refill Encounter Details Date Type Department Care Team Description 03/11/2023 Refill Family Medicine [address] [phone] Emilia Figueroa MD [address] [place] [id number] Anxiety Allergies Active Allergy Reactions Severity Noted Date Comments Amoxicillin-Pot Clavulanate Hives Medium 07/29/19 14 documented as of this encounter (statuses as of 03/11/2023) Medications Medication Sig Dispensed Refills Start Date End Date Status Vitamin 27-0.8 MG Oral Tablet Take by mouth. 0 Active Venlafaxine HCl ER 37.5 MG Oral Capsule Extended Release 24 Hour (Effexor XR)Indications:An xiety TAKE 1 CAPSULE EVERY DAY. DO NOT CUT, CRUSH OR CHEW. 90 Capsule 0 03/11/2023 Active Venlafaxine HCl ER 37.5 MG Oral Capsule Extended Release 24 Hour (Effexor XR)Indications:An xiety TAKE ONE CAPSULE BY MOUTH EVERY DAY DO NOT CUT, CRUSH, OR CHEW 90 Capsule 1 08/05/2022 03/11/2023 Discontinued documented as of this encounter (statuses as of 03/11/2023) Active Problems Problem Noted Date Normal 11/12/2022 Anxiety during 11/12/2022 Overview: Effexor History of gestational diabetes in prior , currently 11/12/2022 H/O dysplastic nevus 03/13/2021 Overview: Mildly atypical nevui (R upper back), L upper abdomen, L distal thigh, dysplastic nevus on back in 6th grade) Anxiety Estimated Date of Delivery Comme nts Yes 05/22/2023 Based on last me nstrual period of 08/15/2022 (Exact Date) documented as of this encounter (statuses as of 03/11/2023) Resolved Problems Problem Noted Date Resolved Date Anxiety in , antepartum 12/24/2018 11/23/2019 Overview: At NOB taking Effexor, doing well, desires to continue , normal first 12/24/2018 11/23/19 Overview: Tdap vaccine administered 07/12/2019 Anais Stallings RN IOL scheduled for 08/16/19 Reema Romero LPN Last Assessment & Plan: Patient given flu vaccine. 06/09/2019 Verónica Godoy LPN Encounter for surveillance of abnormal nevi 02/1311/23/2019 Overview: Mildly dysplastic nevus (R upper back), dysplastic nevus on back in 6th grade? Encounter for surveillance of abnormal nevi 02/1301/01/2018 Overview: Mildly dysplastic nevus (R upper back) documented as of this encounter (statuses as of 03/11/2023) Immunizations Name Administration Dates Next Due COVID-19 mRNA, LNP-s, No Pre serve, 2-Dose Series (Moderna) 11/08/2020,10/09/2020 COVID-19, mRNA, LNP-s, PF, B ooster, 100mcg/0.5mg (Moderna) 06/06/2021 DTaP Dipth/Tet/Acell Pertussis (Infanrix), Peds 05/15/1994,01/06/1991,1989,1989,1989 HEP B - Hepatitis B (Adole/H igh Risk Ped, 11-15 yrs 09/21/2001,05/26/2001,04/15/2001 HPV Vaccine, 4-Valent 06/24/2012,12/24/2011,05/02/2012 Haemophilius B (HIB), unspecified 09/16/1990 IPV - Polio Virus Vaccine (Inact) 1993,01/06/1990,1989,1989 MMR - Measles/Mumps/Rubella Vaccine 05/15/1994,0 09/16/1990 Seasonal Influenza, PF, 6 mo ns & Above, IM , (Flulaval) 05/24/2020 Seasonal Influenza, Quadriva lent, No Preserve, IM [...] drink = 0.6 oz pur e alcohol) Food Insecurity Answer Date Recorded Within the past 12 months, y ou worried that your food would run out before you got money to buy more. Never true 03/03/2023 Within the past 12 months, t he food you bought just didn't last and you didn't have money to get more. Never true 03/03/2023 Estimated Date of Delivery Comme nts Yes 05/22/2023 Based on last me nstrual period of 08/15/2022 (Exact Date) Sex Assigned at Date Recorded Not on file Job Start Date Occupation Industry Not on file Not on file Not on file documented as of this encounter Miscellaneous Notes * Telephone Encounter - Fernando Benson [facility] - 03/11/2023 4:02 PM EDT Signed Prescriptions: Disp Refills Venlafaxine HCl ER 37.5 MG Oral Capsule Ex*90 Cap*0 Sig: TAKE 1 CAPSULE EVERY DAY. DO NOT CUT, CRUSH OR CHEW.Authorizing Provider: EMILIA FIGUEROA * Telephone Encounter - Emilia Figueroa MD - 03/11/2023 3:48 PM EDTSigned Prescriptions: Disp Refills Venlafaxine HCl ER 37.5 MG Oral Capsule Ex*90 Cap*0 Sig: TAKE 1 CAPSULE EVERY DAY. DO NOT CUT, CRUSH OR CHEW. Authorizing Provider: EMILIA FIGUEROA * Telephone Encounter - Emerita Easley [facility] - 03/11/2023 3:39 PM EDTPending Prescriptions: Disp Refills Venlafaxine HCl ER 37.5 MG Oral Capsule Ex*90 Cap*0 Sig: TAKE 1 CAPSULE EVERY DAY. DO NOT CUT, CRUSH OR CHEW. * Telephone Encounter - Emerita Easley RP - 03/11/2023 3:39 PM EDT Unable to authorize medication refills for pended medication(s) at this time. Part of the protocol criteria used for refill authorization was not satisfied. Patient is currently . Please approve if appropriate. Thanks, Emerita Easley PharmD Clinical Pharmacist [facility] [phone] 03/11/2023 3:39 PM * Telephone Encounter - Lora Riggins CPhT - 03/11/2023 1:51 PM EDT Pt is asking for high priority because she is out of the medication. Did you pend patient's preferred pharmacy and medication before forwarding?yes Pharmacy: [id number] [facility] Pending Prescriptions: Disp Refills Venlafaxine HCl ER 37.5 MG Oral Capsule E*90 Cap*0 Sig: TAKE 1 CAPSULE EVERY DAY. DO NOT CUT, CRUSH OR CHEW. Last Visit: 12/09/2022 (in office), Visit date not found (telemedicine) Next Visit: 12/10/2023 If no future appointments scheduled, and last appointment is greater than a year ago, please schedule patient for a follow-up appointment Last date the medication was ordered: 08/05/22 Is this request for a controlled substance?No Urine Drug Screen:No results found for this or any previous visit. Patient Phone Numbers Labs: Lab Results Component Value Date/Time CREAT 0.7 11/19/2022 10:21 AM CREAT 0.8 01/25/2014 10:39 AM POTASSIUM 4.3 11/19/2022 10:21 AM POTASSIUM 3.9 01/25/2014 10:39 AM TSH 2.10 03/03/2023 09:49 AM LDLDIRECT 104 11/19/2022 10:21 AM ALT 13 01/25/2014 10:39 AM documented in this encounter Plan of Treatment Upcoming Encounters Date Type Specialty Care Team Description 03/17/2023 Office Visit Gynecology Obstetrics Backer, JOSH Tran [address] [place] [address] 08/31/2023 Office Visit Dermatology Aicha Solorzano PA-C [address] [place] [address] [place] [address] 12/10/2023 Office Visit Family Medicine Sheela Rose MD [address] [place] [address] [place] [address] Health Maintenance Due Date Last Done Comments Depression Screening 11/22/2020 11/23/2019 COVID-19 Vaccine (4 - Moderna series) 08/01/2021 06/06/2021, 11/08/2020, 10/09/2020 Influenza Vaccine (FLU shot) (#1) 2023 05/24/2020, 06/09/2019, 03/15/2017, Additional history exists Pap Smear 06/12/2025 06/12/2022, 02/13, 12/19/2019, Additional history exists Cervical Cancer Screening 06/12/2027 HPV/Co-Test 06/12/2027 06/12/2022 DTaP,Tdap,and Td Vaccines (9 - Td or Tdap) 03/03/2033 03/03/2023, 07/12/2019, 02/07/2012, Additional history exists Hepatitis B Completed 09/21/2001, 05/15, 04/15/2001 GARDASIL-HPV IMMUNIZATION SERIES Completed 06/24/2012, 12/24/2011, 11/11/2011 MENINGOCOCCAL (MENACTRA/MENVEO) Aged Out No longer eligible based on patient's age to complete this topic Pneumococcal Vaccine: Pediatrics (0 to 5 Years) and At-Risk Patients (6 to 64 Years) Aged Out No longer eligible based on patient's age to complete this topic documented as of this encounter Medical Devices Not on filedocumented as of this encounter Visit Diagnoses Diagnosis Anxiety Anxiety state, unspecified documented in this encounter Care Teams Wildlife Forensic Geneticist Relationship Specialty Start Date End Date Emilia Figueroa MD PCP - General Family Medicine 11/04/18 documented as of this encounter
--- OUTSIDE RECORDS SUMMARY | 2023-05-27 10:06 | External Medical Summary | Summary of Care ---
Author Name Unknown Organization [facility] Address [address] [place] [address] Phone [phone] Care Team Providers Care Drum Drier Name Role Phone Clifford Bose MD Primary Care Provider Reason for Visit * Reason Comments Return Visit Encounter Details Date Type Department Care Team Description 01/30/2023 Office Visit Gynecology/Obstetrics [facility] [address] [place] [address] More English CRNP [address] [place] [address] Normal in second trimester*; Anxiety during ; History of gestational diabetes in prior , currently Allergies Active Allergy Reactions Severity Noted Date Comments Amoxicillin-Pot Clavulanate Hives Medium 07/29/19 14 documented as of this encounter (statuses as of 01/30/2023) Medications Medication Sig Dispensed Refills Start Date End Date Status Venlafaxine HCl ER 37.5 MG Oral Capsule Extended Release 24 Hour (Effexor XR)Indications:Anxie ty TAKE ONE CAPSULE BY MOUTH EVERY DAY DO NOT CUT, CRUSH, OR CHEW 90 Capsule 1 08/05/2022 Active Vitamin 27-0.8 MG Oral Tablet Take by mouth. 0 Active documented as of this encounter (statuses as of 01/30/2023) Active Problems Problem Noted Date Normal 11/12/2022 [...] as of this encounter (statuses as of 01/30/2023) Resolved Problems Problem Noted Date Resolved Date Anxiety in , antepartum 12/24/2018 11/23/2019 Overview: At NOB taking Effexor, doing well, desires to continue , normal first 12/24/2018 11/23/19 Overview: Tdap vaccine administered 07/12/2019 Anais Stallings RN IOL scheduled for 08/16/19 Reema Romero LPN Last Assessment & Plan: Patient given flu vaccine. 06/09/2019 eVrónica Godoy LPN Encounter for surveillance of abnormal nevi 02/1311/23/2019 Overview: Mildly dysplastic nevus (R upper back), dysplastic nevus on back in 6th grade? Encounter for surveillance of abnormal nevi 02/1301/01/2018 Overview: Mildly dysplastic nevus (R upper back) documented as of this encounter (statuses as of 01/30/2023) Immunizations Name Administration Dates Next Due COVID-19 mRNA, LNP-s, No Pre serve, 2-Dose Series (Moderna) 11/08/2020,10/09/2020 Covid-19 Mrna, Lnp-s, No Pre serve, Booster (Moderna) 06/06/2021 DTaP - Dipth/Tet/Acell Pertussis 994,01/06/1991,1989,1989,1989 HEP B - Hepatitis B (Adole/H igh Risk Ped, 11-15 yrs 09/21/2001,05/26/2001,04/15/2001 HPV Vaccine, 4-Valent 06/24/2012,12/24/2011,05/02/2012 Haemophilus B (HIB) 09/16/1990 IPV - Polio Virus Vaccine (Inact) 1993,01/06/1990,1989,1989 MMR - Measles/Mumps/Rubella Vaccine 05/15/1994,0 09/16/1990 Seasonal Influenza, PF, 6 mo ns & Above, IM , (Flulaval) 05/24/2020 Seasonal Influenza, Quadriva lent, No Preserve, IM 06/09/2019,03/15/2017,03/25/2016 Seasonal Influenza, Split, I IV3, With Preserve, Inj 02/27/2013 TD, Preservative Free 09/12/2000 TDAP (age 10 and older)(Boostrix) 07/12/2019, Varicella Vaccine (Chicken Pox) 03/15/1995 documented as of this encounter Social History Tobacco Use Types Packs/Day Years Used Date Smoking Tobacco: Never Smokeless Tobacco: Never Alcohol Use Standard Drinks/Week Comments No 0 (1 standard drink = 0.6 oz pur e alcohol) Estimated Date of Delivery Comme nts Yes 05/22/2023 Based on last me nstrual period of 08/15/2022 (Exact Date) Sex Assigned at Date Recorded Not on file Job Start Date Occupation Industry Not on file Not on file Not on file documented as of this encounter Last Filed Vital Signs Vital Sign Reading Time Taken Comments Blood Pressure 98/60 01/30/2023 11:20 AM EDT Pulse - - Temperature - - Respiratory Rate - - Oxygen Saturation - - Inhaled Oxygen Concentration - - Weight 60.3 kg (133 lb) 01/30/2023 11:20 AM EDT Height - - Body Mass Index 21.47 12/30/2022 11:28 AM EDT documented in this encounter Progress Notes * JOSH Akers - 01/30/2023 11:28 AM EDT 24 wks Doing well, + movement. No cramping/bleeding. Current Effexor dose is effective. Discussed labs & Tdap to be completed at next visit. JOSH Little * Benita Carroll LPN - 01/30/2023 11:20 AM EDT 24w0d Denies vaginal bleeding/rom + movement No new concerns documented in this encounter Plan of Treatment Upcoming Encounters Date Type Specialty Care Team Description 03/03/2023 Laboratory [facility] [place] [address] 03/03/2023 Office Visit Gynecology Obstetrics Irma Ramsay CRNP [address] [place] [address] 08/31/2023 Office Visit Dermatology Aicha Solorzano PA-C [address] [place] [address] [place] [address] 12/10/2023 Office Visit Family Medicine Sheela Rose MD [address] [place] [address] [place] [address] Scheduled Orders Name Type Priority Associated Diagnoses Orde r Schedule 50-G GESTATIONAL GLUCOSE, 1 HOUR Lab Routine Normal in second trimester Expected: 02/13/2023 (Approximate), Expires: 01/31/2024 CBC WITH WBC DIFFERENTIAL AND ANEMIA REFLEX WORKUP Lab Routine Normal in second trimester Expected: 02/13/2023 (Approximate), Expires: 01/31/2024 SYPHILIS ANTIBODY SCREEN WITH REFLEX TO RPR Lab Routine Normal in second trimester Expected: 02/13/2023 (Approximate), Expires: 01/31/2024 Health Maintenance Due Date Last Done Comments Depression Screening, Annual for Pts 12 and Over 11/22/2020 11/23/2019 COVID-19 Vaccine (4 - Moderna series) 08/01/2021 06/06/2021, 11/08/2020, 10/09/2020 Influenza Vaccine (FLU shot) (#1) 2023 05/24/2020, 06/09/2019, 03/15/2017, Additional history exists Pap Smear 06/12/2025 06/12/2022, 02/13, 12/19/2019, Additional history exists Cervical Cancer Screening 06/12/2027 HPV/Co-Test 06/12/2027 06/12/2022 DTaP,Tdap,and Td Vaccines (8 - Td or Tdap) 07/12/2029 07/12/2019, 02/07/2012, 09/12/2000, Additional history exists Hepatitis B Completed 09/21/2001, 05/15, 04/15/2001 GARDASIL-HPV IMMUNIZATION SERIES Completed 06/24/2012, 12/24/2011, 11/11/2011 Hepatitis C Screening Completed 11/12/2022 , 11/12/2022, 01/17/2014 MENINGOCOCCAL (MENACTRA/MENVEO) Aged Out No longer eligible based on patient's age to complete this topic Pneumococcal Vaccine: Pediatrics (0 to 5 Years) and At-Risk Patients (6 to 64 Years) Aged Out No longer eligible based on patient's age to complete this topic documented as of this encounter Medical Devices Not on filedocumented as of this encounter Visit Diagnoses Diagnosis Normal in second trimester- Primary Anxiety during History of gestational diabetes in prior , currently with other poor obstetric history documented in this encounter Care Teams Drum Drier Relationship Specialty Start Date End Date Clifford Bose MD PCP - General Family Medicine 11/04/18 documented as of this encounter
--- OUTSIDE RECORDS SUMMARY | 2023-05-27 10:06 | External Medical Summary | Summary of Care ---
Author Name Unknown Organization [facility] Address [address] [place] [address] Phone [phone] Care Team Providers Care Custom Stock Maker Name Role Phone Clifford Bose MD Primary Care Provider Reason for Visit * Reason Comments Tax Manager Cpa Return Encounter Details Date Type Department Care Team Description 03/03/2023 Office Visit Gynecology/Obstetrics [facility] [address] [place] [address] Irma Ramsay CRNP [address] [place] [address] Normal in second trimester*; Anxiety during ; History of gestational diabetes in prior , currently ; Need for prophylactic vaccination with combined pitzyixykd-axshttp-ydj tussis (DTP) vaccine Allergies Active Allergy Reactions Severity Noted Date Comments Amoxicillin-Pot Clavulanate Hives Medium 07/29/19 14 documented as of this encounter (statuses as of 03/03/2023) Medications Medication Sig Dispensed Refills Start Date End Date Status Venlafaxine HCl ER 37.5 MG Oral Capsule Extended Release 24 Hour (Effexor XR)Indications:Anxie ty TAKE ONE CAPSULE BY MOUTH EVERY DAY DO NOT CUT, CRUSH, OR CHEW 90 Capsule 1 08/05/2022 Active Vitamin 27-0.8 MG Oral Tablet Take by mouth. 0 Active documented as of this encounter (statuses as of 03/03/2023) Active Problems Problem Noted Date Normal 11/12/2022 [...] as of this encounter (statuses as of 03/03/2023) Resolved Problems Problem Noted Date Resolved Date [...] as of this encounter (statuses as of 03/03/2023) Immunizations Name Administration Dates Next Due COVID-19 [...] Sign Reading Time Taken Comments Blood Pressure 102/68 03/03/2023 8:52 AM EDT Pulse - - Temperature - - Respiratory Rate - - Oxygen Saturation - - Inhaled Oxygen Concentration - - Weight 62.1 kg (137 lb) 03/03/2023 8:52 AM EDT Height 167.6 cm (5' 6") 03/03/2023 8:52 AM EDT Body Mass Index 22.11 03/03/2023 8:52 AM EDT documented in this encounter Progress Notes * JOSH Snow - 03/03/2023 9:07 AM EDT 28w4d Complaints: none Feeling well overall. Good FM. No contractions, bleeding, or LOF. Glucola, TDAP today JOSH Snow * Bev Hart LPN - 03/03/2023 8:57 AM EDT 28w4d Pt denies any concerns, completing 28wk labs today. Desires tdap today documented in this encounter Nursing Notes * Bev Hart LPN - 03/03/2023 9:12 AM EDT Patient here for tdap injection. Patient doing well no complaints. Injection given IM as ordered. Patient tolerated well. Patient to follow up as directed. Patient instructed to call if any complications. Patient verbalized understanding of instructions given. Injection site: Left Deltoid Medication Source: Dispensed stock medication documented in this encounter Plan of Treatment Upcoming Encounters Date Type Specialty Care Team Description 03/17/2023 Office Visit Gynecology Obstetrics More English CRNP [address] [place] [address] 08/31/2023 Office Visit Dermatology Aicha Solorzano PA-C [address] [place] [address] [place] [address] 12/10/2023 Office Visit Family Medicine Sheela Rose MD [address] [place] [address] [place] [address] Health Maintenance Due Date Last Done Comments [...] , currently with other poor obstetric history Need for prophylactic vaccination with combined xoakzpdjnf-khlfcpp-uguojroky (DTP) vaccine documented in this encounter Care Teams Custom Stock Maker Relationship Specialty Start Date End Date Clifford Bose MD PCP - General Family Medicine 11/04/18 documented as of this encounter
--- OUTSIDE RECORDS SUMMARY | 2023-05-27 10:06 | External Medical Summary ---
Author Name Unknown Address Unknown Organization [id number]:LABORATORY [facility] - [address] [facility] [address] Laboratory Report Ordering Provider Test Date Status SYED LEYVA 03/03/2023 09:49:25 Final Observation Date Value Abnormality Reference (Units ) Status Treponema pallidum Ab [Presence] in Serum by Immunoassay 03/03/2023 09:49:25 Nonreactive Nonreactive Final No serologic evidence of syp hilis. No additional testing clinicially indicated at this time. Consider repeat testing in 2-4 weeks if acute or primary syphilis is suspected. Performing Location [facility]ORY [facility] - [address] [place] [address]
--- OUTSIDE RECORDS SUMMARY | 2023-05-27 10:06 | External Medical Summary ---
Author Name Unknown Address Unknown Organization [id number]:LAB[facility]ATORY [facility] [place] - [address] [place] [address] Laboratory Report Ordering Provider Test Date Status SYED LEYVA 03/03/2023 09:49:25 Final Observation Date Value Abnormality Reference (Units ) Status TSH 03/03/2023 09:49:25 2.10 0.27-4.20 (uIU/mL) Final Performing Location LABORATORY [facility] - [address] [place] [address]
--- OUTSIDE RECORDS SUMMARY | 2023-05-27 10:06 | External Medical Summary | Summary of Care ---
Author Name Unknown Organization [facility] Address [address] [place] [address] Phone [phone] Care Team Providers Care National Business Director Name Role Phone Clifford Bose MD Primary Care Provider [phone] Reason for Visit * Reason Comments Return Visit Encounter Details Date Type Department Care Team Description 03/17/2023 Office Visit Gynecology/Obstetrics [facility] [address] [place] [address] More English CRNP [address] [place] [address] Normal in third trimester*; Anxiety during ; History of gestational diabetes in prior , currently ; Need for influenza vaccination; Breast feeding status of mother Allergies Active Allergy Reactions Severity Noted Date Comments Amoxicillin-Pot Clavulanate Hives Medium 07/29/19 14 documented as of this encounter (statuses as of 03/17/2023) Medications Medication Sig Dispensed Refills Start Date End Date Status Vitamin 27-0.8 MG Oral Tablet Take by mouth. 0 Active Venlafaxine HCl ER 37.5 MG Oral Capsule Extended Release 24 Hour (Effexor XR)Indications:Anxie ty TAKE 1 CAPSULE EVERY DAY. DO NOT CUT, CRUSH OR CHEW. 90 Capsule 0 03/11/2023 Active Breast PumpIndications:Barney st feeding status of mother Z39.1, AMOL 05/22/23. Double electric pump 1 Each 0 03/17/2023 Active documented as of this encounter (statuses as of 03/17/2023) Active Problems Problem Noted Date Normal 11/12/2022 [...] as of this encounter (statuses as of 03/17/2023) Resolved Problems Problem Noted Date Resolved Date [...] as of this encounter (statuses as of 03/17/2023) Immunizations Name Administration Dates Next Due COVID-19 [...] (Exact Date) Sex Assigned at Date Recorded Female 03/17/2023 1:38 PM E DT Job Start Date Occupation Industry Not on file Not on file Not on file documented as of this encounter Last Filed Vital Signs Vital Sign Reading Time Taken Comments Blood Pressure 100/60 03/17/2023 1:31 PM EDT Pulse - - Temperature - - Respiratory Rate - - Oxygen Saturation - - Inhaled Oxygen Concentration - - Weight 62.1 kg (136 lb 12.8 oz) 03/17/2023 1:31 PM EDT Height - - Body Mass Index 22.08 03/03/2023 8:52 AM EDT documented in this encounter Progress Notes * JOSH Akers - 03/17/2023 1:35 PM EDT 30w4d Accepts flu shot. Rx for breast pump. Baby moving well, reviewed movement counts and to call with decreased movement or <10/2 hrs. No leaking/bleeding or ctx. 2 week return JOSH Little * Benita Carroll LPN - 03/17/2023 1:32 PM EDT 30w4d Denies vaginal bleeding/rom + movement documented in this encounter Nursing Notes * Benita Carroll LPN - 03/17/2023 1:46 PM EDT Patient here for flu injection. Patient doing well no complaints. Injection given IM as ordered. Patient tolerated well. Patient to follow up as directed. Patient instructed to call if any complications. Patient verbalized understanding of instructions given. Injection site: Left Deltoid Medication Source: Dispensed stock medication documented in this encounter Plan of Treatment Upcoming Encounters Date Type Specialty Care Team Description 04/01/2023 Office Visit Gynecology Obstetrics More English CRNP [address] [facility] [place] [address] 08/31/2023 Office Visit Dermatology Aicha Solorzano PA-C [address] [place] [address] [place] [address] 12/10/2023 Office Visit Family Medicine Sheela Rose MD [address] [place] [address] [place] [address] Health Maintenance Due Date Last Done Comments [...] with other poor obstetric history Need for influenza vaccination Need for prophylactic vaccination and inoculation against influenza Breast feeding status of mother care and examination of lactating mother documented in this encounter Care Teams National Business Director Relationship Specialty Start Date End Date Clifford Bose MD PCP - General Family Medicine 11/04/18 documented as of this encounter
--- OUTSIDE RECORDS SUMMARY | 2023-05-27 10:06 | External Medical Summary | Summary of Care ---
Author Name Unknown Organization [facility] Address [address] [place] [address] Phone [phone] Care Team Providers Care Fire Technician Name Role Phone Clifford Bose MD Primary Care Provider Encounter Details Date Type Department Care Team (Late st Contact Info) Description 04/14/2023 Orders Only Outcomes Research Department [address] [place] [address] Elli Farrar CHRA [facility] Other*[id number] Allergies Active Allergy Reactions Criticality Noted Date Comments Amoxicillin-Pot Clavulanate Hives Medium 07/29/19 14 documented as of this encounter (statuses as of 04/14/2023) Medications Medication Sig Dispensed Refills Start Date [...] as of this encounter (statuses as of 04/14/2023) Active Problems Problem Noted Date Diagnosed Date [...] as of this encounter (statuses as of 04/14/2023) Resolved Problems Problem Noted Date Diagnosed Date [...] as of this encounter (statuses as of 04/14/2023) Immunizations Name Administration Dates Next Due COVID-19 [...] money to get more. Never true 03/03/2023 Daisy Depression Scale Answer Date Recorded Daisy Depression Scale Total 3 03/17/2023 The thought [...] on file documented as of this encounter Plan of Treatment Upcoming Encounters Date Type Department Care Team (Late st Contact Info) Description 04/15/2023 4:30 PM EDT Office Visit Gynecology/Obstetrics Subha Sorensen [address] [place] [address] Katherine Urbina PA-C [address] [place] [address] 08/31/2023 3:40 PM EDT Office Visit Dermatology [address] [place] [address] Aicha Solorzano PA-C [address] [place] [address] [place] [address] 12/10/2023 4:20 PM EDT Office Visit Family Medicine [address] [place] [phone] Sheela Rose MD [address] [place] [address] [place] [address] Scheduled Orders Name Type Priority Associated Diagnoses Orde r Schedule MYCODE SUBSEQUENT ADULT Lab Routine [facility] Other*[id number] Every 6 Months for 2 Occurrences starting 04/14/2023 until 05/03/2024 Health Maintenance Due Date Last Done Comments [...] as of this encounter Visit Diagnoses Diagnosis [facility] Other*[id number] documented in this encounter Care Teams Fire Technician Relationship Specialty Start Date End Date Clifford Bose MD PCP - General Family Medicine 11/04/18 documented as of this encounter
--- OUTSIDE RECORDS SUMMARY | 2023-05-27 10:06 | External Medical Summary | Summary of Care ---
Author Name Unknown Organization [facility] Address [address] [place] [address] Phone [phone] Care Team Providers Care Counseling Center Director Name Role Phone Clifford Bose MD Primary Care Provider Reason for Visit * Reason Comments Return Visit Encounter Details Date Type Department Care Team Description 04/01/2023 Office Visit Gynecology/Obstetrics [facility] [address] [place] [address] More English CRNP [address] [place] [address] Normal in third trimester*; Anxiety during ; History of gestational diabetes in prior , currently Allergies Active Allergy Reactions Severity Noted Date Comments Amoxicillin-Pot Clavulanate Hives Medium 07/29/19 14 documented as of this encounter (statuses as of 04/01/2023) Medications Medication Sig Dispensed Refills Start Date End Date Status Vitamin 27-0.8 MG Oral Tablet Take by mouth. 0 Active Venlafaxine HCl ER 37.5 MG Oral Capsule Extended Release 24 Hour (Effexor XR)Indications:Anxie ty TAKE 1 CAPSULE EVERY DAY. DO NOT CUT, CRUSH OR CHEW. 90 Capsule 0 03/11/2023 Active Breast PumpIndications:[place] st feeding status of mother Z39.1, AMOL 05/22/23. Double electric pump 1 Each 0 03/17/2023 Active documented as of this encounter (statuses as of 04/01/2023) Active Problems Problem Noted Date Normal 11/12/2022 [...] as of this encounter (statuses as of 04/01/2023) Resolved Problems Problem Noted Date Resolved Date [...] as of this encounter (statuses as of 04/01/2023) Immunizations Name Administration Dates Next Due COVID-19 [...] Date Smoking Tobacco: Never Smokeless Tobacco: Never Tobacco Cessation:Counseling Given: Not Answered Alcohol Use Standard Drinks/Week Comments No 0 [...] Sign Reading Time Taken Comments Blood Pressure 106/68 04/01/2023 1:35 PM EDT Pulse - - Temperature - - Respiratory Rate - - Oxygen Saturation - - Inhaled Oxygen Concentration - - Weight 61.8 kg (136 lb 3.2 oz) 04/01/2023 1:35 P M EDT Height 167.6 cm (5' 6") 04/01/2023 1:35 PM EDT Body Mass Index 21.98 04/01/2023 1:35 PM EDT documented in this encounter Progress Notes * JOSH Akers - 04/01/2023 1:33 PM EDT 32w5d Doing well, good movement. No ctx, leaking, bleeding. Provided labor instructions. Feels well on current Effexor dose. Concerned that baby will be breech - feels vertex today, recommend Spinning Babies to optimize positioning. 2 week return JOSH Little documented in this encounter Nursing Notes * Tatiana Gonzalez RN - 04/01/2023 1:36 PM EDT Patient here for EL 32w5d No concerns documented in this encounter Plan of Treatment Upcoming Encounters Date Type Specialty Care Team Description 04/15/2023 Office Visit Gynecology Obstetrics Katherine Urbina PA-C [address] [place] [address] 08/31/2023 Office Visit Dermatology Aicha Solorzano PA-C [address] [place] [address] [place] [address] 12/10/2023 Office Visit Family Medicine Sheela Rose MD [address] [place] [address] [place] [address] Health Maintenance Due Date Last Done Comments Depression Screening 11/22/2020 11/23/2019 COVID-19 Vaccine (2022- season) 2023 06/06/2021, 11/08/2020, 10/09/2020 Pap Smear [...] history documented in this encounter Care Teams Counseling Center Director Relationship Specialty Start Date End Date Clifford Bose MD PCP - General Family Medicine 11/04/18 documented as of this encounter
--- OUTSIDE RECORDS SUMMARY | 2023-05-27 10:06 | External Medical Summary ---
Author Name Unknown Address Unknown Organization K0G:[facility] [address] [place] [address] Laboratory Report Ordering Provider Test Date Status SYED LEYVA 03/03/2023 09:49:25 Final Observation Date Value Abnormality Reference (Units ) Status Glucose [Moles/volume] in Serum or Plasma --1 hour post 50 g glucose PO 03/03/2023 09:49:25 87 70-129 (mg/dL) Final Performing Location [facility] [address] [place] [address]
--- OUTSIDE RECORDS SUMMARY | 2023-05-27 10:06 | External Medical Summary ---
Author Name Unknown Address Unknown Organization [id number]:[facility] [place] - [address] [facility] [address] Laboratory Report Ordering Provider Test Date Status SYED LEYVA 03/03/2023 09:49:25 Final Observation Date Value Abnormality Reference (Units ) Status SYNC LEUKOCYTES IN BLOOD BY AUTOMATED COUNT 03/03/2023 09:49:25 10.26 4.00-10.80 (K/uL) Final Segs 03/03/2023 09:49:25 77.5 Above high normal 40.0-75.0 (%) Final Lymphs % 03/03/2023 09:49:25 14.1 Below low normal 18.0-42.0 (%) Final Monos 03/03/2023 09:49:25 5.8 1.0-11.0 (%) Final Eosinophils 03/03/2023 09:49:25 0.3 0.0-6.0 (%) Final Basos 03/03/2023 09:49:25 0.4 0.0-2.0 (%) Final Immature Granulocyte, Percent 03/03/2023 09:49:25 1.9 0.0-2.0 (%) Final Absolute Segs 03/03/2023 09:49:25 7.95 Above high normal 1.80-7.70 (K/uL) Final Lymphs, absolute 03/03/2023 09:49:25 1.45 1.00-4.80 (K/ul) Final Monos, Abs 03/03/2023 09:49:25 0.60 0.00-1.10 (K/uL) Final Eos, Abs 03/03/2023 09:49:25 0.03 0.00-0.70 (K/uL) Final Basos, Abs 03/03/2023 09:49:25 0.04 0.00-0.20 (K/uL) Final Immature Granulocytes, Number 03/03/2023 09:49:25 0.19 0.00-0.20 (K/uL) Final Performing Location [facility] [place] - [address] [facility] [address]
--- OUTSIDE RECORDS SUMMARY | 2023-05-27 10:07 | External Medical Summary | Summary of Care ---
Author Name Unknown Organization [facility] Address [address] [place] [address] Phone [phone] Care Team Providers Care Mold Sander Name Role Phone Emilia Figueroa MD Primary Care Provider [phone] Reason for Visit * Reason Comments Follow Up Lesion on chest, christophe wing Encounter Details Date Type Department Care Team Description 01/12/2023 Office Visit Dermatology [address] [place] [address] Aicha Solorzano PA-C [address] [place] [address] [place] [address] H/O dysplastic nevus*; Neoplasm of uncertain behavior of skin Allergies Active Allergy Reactions Severity Noted Date Comments Amoxicillin-Pot Clavulanate Hives Medium 07/29/19 14 documented as of this encounter (statuses as of 01/13/2023) Medications Medication Sig Dispensed Refills Start Date End Date Status Venlafaxine HCl ER 37.5 MG Oral Capsule Extended Release 24 Hour (Effexor XR)Indications:Anxie ty TAKE ONE CAPSULE BY MOUTH EVERY DAY DO NOT CUT, CRUSH, OR CHEW 90 Capsule 1 08/05/2022 Active Vitamin 27-0.8 MG Oral Tablet Take by mouth. 0 Active documented as of this encounter (statuses as of 01/13/2023) Active Problems Problem Noted Date Normal 11/12/2022 [...] as of this encounter (statuses as of 01/13/2023) Resolved Problems Problem Noted Date Resolved Date [...] as of this encounter (statuses as of 01/13/2023) Immunizations Name Administration Dates Next Due COVID-19 mRNA, LNP-s, No Pre serve, 2-Dose Series (Moderna) 11/08/2020,10/09/2020 Covid-19 Mrna, Lnp-s, No Pre serve, Booster (Moderna) 06/06/2021 DTaP - Dipth/Tet/Acell Pertussis 994,01/06/1991,1989,1989,1989 HEP B - Hepatitis B (Adole/H igh Risk Ped, 11-15 yrs 09/21/2001,05/26/2001,04/15/2001 HPV Vaccine, 4-Valent 06/24/2012,12/24/2011,10/14 Haemophilus B (HIB) 09/16/1990 IPV - Polio Virus Vaccine (Inact) 1993,01/06/1990,1989,1989 MMR - Measles/Mumps/Rubella Vaccine 05/15/1994,0 09/16/1990 Seasonal Influenza, Quadriva lent, No Preserve, 6 Mons & Above, IM 05/24/2020 Seasonal Influenza, Quadriva lent, No Preserve, [...] on file documented as of this encounter Progress Notes * Lorenzo Richardson MD - 01/13/2023 10:23 AM EDT I have seen and examined the patient via teledermatology review of chart note and photos with Aicha Solorzano PA-C. I have reviewed and agree with the assessment and plan. * Aicha Solorzano PA-C - 01/12/2023 8:20 AM EDT SUBJECTIVE: History of Present Illness: Davidson MEDINA is a 32 year old female seen today for follow up of lesion. Previous office visit: 05/21/2022 Last attempted treatments include: bx x 1 (post inflammatory pigment alteration) Lesion on chest, present for at least a year, enlarging and bothersome to pt. No tx to date. Full skin exam 05/2022. Pt is 21 weeks . REVIEW OF SYSTEMS: SKIN: No other new or changing moles. HEME/LYMPH: No new or enlarging lumps or bumps. CONSTITUTIONAL: No nausea, vomiting, fevers, chills, diarrhea. No recent unintended weight loss, night sweats, appetite or malaise. RESP: negative MSK/EXT: Negative or as per HPI GI: negative CV: Negative or as per HPI Rest of systems are negative or as per HPI SKIN CANCER HX: Mildly atypical nevui (R upper back), L upper abdomen, L distal thigh, dysplastic nevus on back in 6th grade) Reviewed, same day as visit, 0 [facility] Dermatology lab work(s)/pathology report(s) as well as those sent by referring provider prior to seeing pt. MEDICA TIONS: Current Outpatient Medications Medication Sig Dispense Refill Venlafaxine HCl ER 37.5 MG Oral Capsule Extended Release 24 Hour (Effexor XR) TAKE ONE CAPSULE BY MOUTH EVERY DAY DO NOT CUT, CRUSH, OR CHEW 90 Capsule 1 Vitamin 27-0.8 MG Oral Tablet Take by mouth. No current facility-administered medications for this visit. ALLERG IES: Amoxicillin-pot clavulanate OBJECT NHUNG: GEN: alert, no distress, appears oriented, pleasant and cooperative. SKIN: Detailed exam of face including lids and lips, anterior neck and chest completed: 1A. R central chest-9x7mm light-medium brown irregular macule. ASSESS MENT/PLAN: 1A. Lentigo vs nevus, r/o atypia on R central chest-Shave removal of the lesion noted above to remove and confirm diagnosis. The procedure, risks including but not limited to; (scarring, bleeding, infection, pain, and bruising), benefits, alternatives and expected outcomes were discussed with the patient, and obtained verbal consent from pt. Time out called. Patient identified, procedure verified, site identified and verified. Patient and staff present in agreement. Area prepped with alcohol and anesthetized using 1cc of 0.2% concentration of Ropivicaine. Shave of lesion performed. 20% AlCl and bandaging applied. Specimen sent to pathology. Patient instructed in routine post-op care and given wound care pamphlet. Patient alone today. Photo(s) of #1 taken, pt verbally consented to having photo(s) taken. Follow-up: 06/06 for full skin exam Contact patient via cell phone Ok to leave results on message: Yes Able to speak to none Patient Phone Numbers Applicable photos (if any) and chart reviewed by Dr. Lorenzo Richardson. Presumed diagnoses, expected natural histories, and management options discussed with the patient at length. Questions were addressed and anticipatory guidance provided. They were instructed to contact me if additional questions, concerns, or problems develop in the interim. -There were no barriers to learning and no other pain was related to today's visit. The patient and/or person accompanying patient demonstrates understanding of the visit and treatment. Aicha Solorzano PA-C 01/12/2023 7:26 AM Ref: SELF[[id number]] NO STREET ADDRESS AVAILABLE None (office) None (fax) PCP: EMILIA FIGUEROA [address] [place] [address] [place] [address] documented in this encounter Nursing Notes * Maribell Garner LPN - 01/12/2023 8:17 AM EDT Patient identified by full name and date of . Chief Complaint Patient presents with Follow Up Lesion on chest, growing documented in this encounter Plan of Treatment Upcoming Encounters Date Type Specialty Care Team Description 01/30/2023 Office Visit Gynecology Obstetrics BackerMore CRNP [address] [place] [phone] 08/31/2023 Office Visit Dermatology Aicha Solorzano PA-C [address] [place] [address] [place] [address] 12/10/2023 Office Visit Family Medicine Sheela Rose MD [address] [place] [address] [place] [address] Pending Results Name Type Priority Associated Diagnoses Date /Time SURGICAL PATHOLOGY Pathology Routine Neoplasm of uncertain behavior of skin 01/12/2023 8:32 AM EDT Health Maintenance Due Date Last Done Comments [...] Not on filedocumented as of this encounter Procedures Procedure Name Priority Date/Time Associated Diagnosis Comments DERM IMAGE (SITE) Routine 01/12/2023 H/O dysplastic nevus Neoplasm of uncertain behavior of skin documented in this encounter Results * DERM IMAGE (SITE) (01/12/2023) 01/12/2023 Aicha Solorzano PA-C DIGITAL PHOTOG PRAFUL documented in this encounter Visit Diagnoses Diagnosis H/O dysplastic nevus- Primary Personal history of diseases of skin and subcutaneous tissue Neoplasm of uncertain behavior of skin documented in this encounter Care Teams Mold Sander Relationship Specialty Start Date End Date Emilia Figueroa MD PCP - General Family Medicine 11/04/18 documented as of this encounter
--- OUTSIDE RECORDS SUMMARY | 2023-05-27 10:07 | External Medical Summary | Summary of Care ---
Author Name Unknown Organization [facility] Address [address] [place] [address] Phone [phone] Care Team Providers Care Overlocker Name Role Phone Clifford Bose MD Primary Care Provider [phone] Reason for Visit * Reason Comments Physical-Exam Encounter Details Date Type Department Care Team Description 12/09/2022 Office Visit Family Medicine [address] [phone] Clifford Bose MD [address] [place] [phone] Anxiety*; Normal in second trimester; Anxiety during Allergies Active Allergy Reactions Severity Noted Date Comments Amoxicillin-Pot Clavulanate Hives Medium 07/29/19 14 documented as of this encounter (statuses as of 12/09/2022) Medications Medication Sig Dispensed Refills Start Date End Date Status Venlafaxine HCl ER 37.5 MG Oral Capsule Extended Release 24 Hour (Effexor XR)Indications:An xiety TAKE ONE CAPSULE BY MOUTH EVERY DAY DO NOT CUT, CRUSH, OR CHEW 90 Capsule 1 08/05/2022 Active Vitamin 27-0.8 MG Oral Tablet Take by mouth. 0 Active Promethazine HCl 25 MG Oral Tablet (Phenergan)Indica tions:Nausea and vomiting during Take 1 Tablet by mouth every 6 hours as needed for Nausea. 30 Tablet 2 11/12/2022 12/09/2022 Discontinued (Patient preference/d iscontinuati on) documented as of this encounter (statuses as of 12/09/2022) Active Problems Problem Noted Date Normal 11/12/2022 [...] as of this encounter (statuses as of 12/09/2022) Resolved Problems Problem Noted Date Resolved Date [...] as of this encounter (statuses as of 12/09/2022) Immunizations Name Administration Dates Next Due COVID-19 [...] Sign Reading Time Taken Comments Blood Pressure 114/62 12/09/2022 3:23 PM EDT Pulse 76 12/09/2022 3:23 PM EDT Temperature 36.2 C (97.2 F) 12/09/2022 3 :23 PM EDT Respiratory Rate 16 12/09/2022 3:23 PM EDT Oxygen Saturation - - Inhaled Oxygen Concentration - - Weight 54.4 kg (120 lb) 12/09/2022 3:23 PM EDT pt is Height 167.6 cm (5' 6") 12/09/2022 3:23 PM EDT Body Mass Index 19.37 12/09/2022 3:23 PM EDT documented in this encounter Progress Notes * Clifford Bose MD - 12/09/2022 3:44 PM EDT Davidson is 16 weeks , is getting over the nausea and vomiting. She is doing well with the venlafaxine and did her other that way too. She has a 3 year old at home. Labs were all good. She was borderline for gestational diabetes last time so that is being watched.She has a grandmother that got diagnoses later in life. Her son was 7 pounds at . She has been watched closely because of HPV. 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 Flanagan CT ABDOMEN/PELVIS 02/07/14 normal DENTAL SURGERY PROCEDURE NEC DICT KIDNEY STONES 2008 basket retrival EGD, FLEXIBLE, DIAGNOSTIC 03/27/2014 duodenal eosinophilia/ESOPHAGOGASTRODUODENOSCOPY (EGD), FLEXIBLE, TRANSORAL, DIAGNOSTIC performed by Arlette Aguirre DO at ENDOSCOPY [facility] Review of patient's allergies indicates: Allergen Reactions Amoxicillin-Pot Clavulanate Hives Social History Socioeconomic History Marital status: Spouse name: Not on file Number of children: Not on file Years of education: Not on file Highest education level: Not on file Occupational History Not on file Tobacco Use Smoking status: Never Smokeless tobacco: Never Vaping Use Vaping Use: Never used Substance and Sexual Activity Alcohol use: No Drug use: No Sexual activity: Yes Partners: Male Other Topics Concern Not on file Social History Narrative [place] Social Determinants of Health Financial Resource Strain: Not on file Food Insecurity: Not on file Transportation Needs: Not on file Physical Activity: Not on file Stress: Not on file Social Connections: Not on file Intimate Partner Violence: Not on file Housing Stability: Not on file Current Outpatient Medications Medication Sig Dispense Refill Venlafaxine HCl ER 37.5 MG Oral Capsule Extended Release 24 Hour (Effexor XR) TAKE ONE CAPSULE BY MOUTH EVERY DAY DO NOT CUT, CRUSH, OR CHEW 90 Capsule 1 Vitamin 27-0.8 MG Oral Tablet Take by mouth. No current facility-administered medications for this visit. Immunization History Administered Date(s) Administered COVID-19 mRNA, LNP-s, No Preserve, 2-Dose Series (Moderna) 10/09/2020, 11/08/2020 Covid-19 Mrna, Lnp-s, No Preserve, Booster (Moderna) 06/06/2021 DTaP - Dipth/Tet/Acell Pertussis 1989, 1989, 1989, 01/06/1991, 05/15/1994 HEP B - Hepatitis B (Adole/High Risk Ped, 11-15 yrs 04/15/2001, 05/26/2001, 09/21/2001 HPV Vaccine, 4-Valent 11/11/2011, 12/24/2011, 06/24/2012 Haemophilus B (HIB) 09/16/1990 IPV - Polio Virus Vaccine (Inact) 1989, 1989, 01/06/1990, 05/15/1994 MMR - Measles/Mumps/Rubella Vaccine 09/16/1990, 05/15/1994 Seasonal Influenza, Quadrivalent, No Preserve, 6 Mons & Above, IM 05/24/2020 Seasonal Influenza, Quadrivalent, No Preserve, IM 03/25/2016, 03/15/2017, 06/09/2019 Seasonal Influenza, Split, IIV3, With Preserve, Inj 02/27/2013 TD, Preservative Free 09/12/2000 TDAP (age 10 and older)(Boostrix) 02/07/2012, 07/12/2019 Varicella Vaccine (Chicken Pox) 03/15/1995 O: Blood pressure 114/62, pulse 76, temperature 36.2 C (97.2 F), resp. rate 16, height 1.676 m (5' 6"), weight 54.4 kg (120 lb), last menstrual period 08/15/2022, unknown if currently . General appearance: well developed, well nourished and in no acute distress. Neck is supple withoutadenopathy or thyromegaly. Chest is symmetrical and moves normally. The lungs are clear without wheezes, rales, rhonchi or rubs, and the heart is regular without murmurs or gallops, or ectopy. PMI not displaced. A: Anxiety (Primary) Normal in second trimester Anxiety during Continue the venlafaxine Follow Up: Return if symptoms worsen or fail to improve. documented in this encounter Nursing Notes * Janet Traylor RN - 12/09/2022 3:23 PM EDT Yearly check up, (pt is 16 weeks ) No new concerns documented in this encounter Plan of Treatment Upcoming Encounters Date Type Specialty Care Team Description 12/12/2022 Office Visit Gynecology Obstetrics Anais Olson, [facility] [address] [facility] [address] 01/12/2023 Office Visit Dermatology Aicha Solorzano PA-C [address] [place] [address] [place] [address] 12/10/2023 Office Visit Family Medicine Sheela Rose MD [address] [place] [address] [place] [address] Health Maintenance Due Date Last Done Comments Depression Screening, Annual for Pts 12 and Over 11/22/2020 11/23/2019 COVID-19 Vaccine (4 - Moderna series) 08/01/2021 06/06/2021, 11/08/2020, 10/09/2020 Influenza Vaccine (FLU shot) (Season Ended) 2023 05/24/2020, 06/09/2019, 03/15/2017, Additional history exists Pap Smear 06/12/2027 06/12/2022, 02/13, 12/19/2019, Additional history exists DTaP,Tdap,and Td Vaccines (8 - Td or Tdap) 07/12/2029 07/12/2019, 02/07/2012, 09/12/2000, Additional history exists Hepatitis B Completed 09/21/2001, 05/15, 04/15/2001 GARDASIL-HPV IMMUNIZATION SERIES Completed 06/24/2012, 12/24/2011, 11/11/2011 Hepatitis C Screening Completed 11/12/2022, 014 MENINGOCOCCAL (MENACTRA/MENVEO) Aged Out No longer eligible based on patient's age to complete this topic Pneumococcal Vaccine: Pediatrics (0 to 5 Years) and At-Risk Patients (6 to 64 Years) Aged Out No longer eligible based on patient's age to complete this topic documented as of this encounter Medical Devices Not on filedocumented as of this encounter Visit Diagnoses Diagnosis Anxiety- Primary Anxiety state, unspecified Normal in second trimester Anxiety during documented in this encounter Care Teams Overlocker Relationship Specialty Start Date End Date Clifford Bose MD PCP - General Family Medicine 11/04/18 documented as of this encounter
--- OUTSIDE RECORDS SUMMARY | 2023-05-27 10:07 | External Medical Summary | Summary of Care ---
Author Name Unknown Organization [facility] Address [address] [place] [address] Phone [phone] Care Team Providers Care Elevator Examiner Name Role Phone Cliffrod Bose MD Primary Care Provider Reason for Visit * Reason Comments Return Visit Encounter Details Date Type Department Care Team Description 12/12/2022 Office Visit Gynecology/Obstetrics [facility] [address] [facility] [place] [id number] Anais Olson, [facility] [address] [facility] [address] Normal intrauterine , antepartum*; Anxiety during ; History of gestational diabetes in prior , currently Allergies Active Allergy Reactions Severity Noted Date Comments Amoxicillin-Pot Clavulanate Hives Medium 07/29/19 14 documented as of this encounter (statuses as of 12/12/2022) Medications Medication Sig Dispensed Refills Start Date End Date Status Venlafaxine HCl ER 37.5 MG Oral Capsule Extended Release 24 Hour (Effexor XR)Indications:Anxie ty TAKE ONE CAPSULE BY MOUTH EVERY DAY DO NOT CUT, CRUSH, OR CHEW 90 Capsule 1 08/05/2022 Active Vitamin 27-0.8 MG Oral Tablet Take by mouth. 0 Active documented as of this encounter (statuses as of 12/12/2022) Active Problems Problem Noted Date Normal 11/12/2022 [...] as of this encounter (statuses as of 12/12/2022) Resolved Problems Problem Noted Date Resolved Date [...] as of this encounter (statuses as of 12/12/2022) Immunizations Name Administration Dates Next Due COVID-19 [...] Sign Reading Time Taken Comments Blood Pressure 98/58 12/12/2022 3:48 PM EDT Pulse - - Temperature - - Respiratory Rate - - Oxygen Saturation - - Inhaled Oxygen Concentration - - Weight 54.9 kg (121 lb) 12/12/2022 3:48 PM EDT Height - - Body Mass Index 19.53 12/09/2022 3:23 PM EDT documented in this encounter Progress Notes * Anais Olson CNM - 12/12/2022 3:54 PM EDT 17w0d Nausea has improved and feeling good. Declines all genetic testing. Encouraged hydration and reviewed bleeding precautions. RTO at 20w for anatomy scan and EL. documented in this encounter Nursing Notes * Benita Carroll LPN - 12/12/2022 3:48 PM EDT 17w0d Denies vaginal bleeding/rom Absent movement No new concerns documented in this encounter Plan of Treatment Upcoming Encounters Date Type Specialty Care Team Description 12/30/2022 Imaging Radiology 12/30/2022 Office Visit Gynecology Obstetrics Katherine Urbina PA-C [address] [place] [address] 01/12/2023 Office Visit Dermatology Aicha Solorzano PA-C [address] [place] [address] [place] [address] 12/10/2023 Office Visit Family Medicine Sheela Rose MD [address] [place] [address] [place] [address] Scheduled Orders Name Type Priority Associated Diagnoses Orde r Schedule US PREG SINGLE/1ST GEST, 14 WEEKS OR LATER Medical Imaging Routine Normal intrauterine , antepartum Expected: 01/02/2023 (Approximate), Expires: 01/12/2024 Health Maintenance Due Date Last Done Comments [...] history documented in this encounter Care Teams Elevator Examiner Relationship Specialty Start Date End Date Clifford Bose MD PCP - General Family Medicine 11/04/18 documented as of this encounter
--- OUTSIDE RECORDS SUMMARY | 2023-05-27 10:07 | External Medical Summary | Summary of Care ---
Author Name Unknown Organization [facility] Address [address] [place] [facility] [place] [place] [address] Phone [phone] Care Team Providers Care Business Team Leader Name Role Phone Clifford Bose MD Primary Care Provider Reason for Visit * Reason Comments Return Visit Encounter Details Date Type Department Care Team Description 12/30/2022 Office Visit Gynecology/Obstetrics [facility] [address] [place] [address] Katherine Urbina PA-C [address] [place] [address] Normal in second trimester*; Anxiety during ; History of gestational diabetes in prior , currently Allergies Active Allergy Reactions Severity Noted Date Comments Amoxicillin-Pot Clavulanate Hives Medium 07/29/19 14 documented as of this encounter (statuses as of 12/30/2022) Medications Medication Sig Dispensed Refills Start Date End Date Status Venlafaxine HCl ER 37.5 MG Oral Capsule Extended Release 24 Hour (Effexor XR)Indications:Anxie ty TAKE ONE CAPSULE BY MOUTH EVERY DAY DO NOT CUT, CRUSH, OR CHEW 90 Capsule 1 08/05/2022 Active Vitamin 27-0.8 MG Oral Tablet Take by mouth. 0 Active documented as of this encounter (statuses as of 12/30/2022) Active Problems Problem Noted Date Normal 11/12/2022 [...] as of this encounter (statuses as of 12/30/2022) Resolved Problems Problem Noted Date Resolved Date [...] as of this encounter (statuses as of 12/30/2022) Immunizations Name Administration Dates Next Due COVID-19 [...] Sign Reading Time Taken Comments Blood Pressure 88/56 12/30/2022 11:28 AM EDT Pulse - - Temperature - - Respiratory Rate - - Oxygen Saturation - - Inhaled Oxygen Concentration - - Weight 56.7 kg (125 lb) 12/30/2022 11:28 AM EDT Height 167.6 cm (5' 6") 12/30/2022 11:28 AM EDT Body Mass Index 20.18 12/30/2022 11:28 AM EDT documented in this encounter Progress Notes * Katherine Urbina PA-C - 12/30/2022 11:46 AM EDT 19w4d Increasing nausea from last visit, no vomiting. Pt reports managing well on her own. Had a lot withfirst . Has Phenergan at home should she need it, but hasn't felt she has. Reviewed small frequent meals and use of seabands. Anatomy today, final report pending. Gender a surprise. RTC in 4 weeks Katherine Urbina PA-C documented in this encounter Nursing Notes * Maria Elena Mcdowell LPN - 12/30/2022 11:28 AM EDT 19w4d Had anatomy scan today. Nausea has returned, states she has phenergan at home but hasnt needed to use it. documented in this encounter Plan of Treatment Upcoming Encounters Date Type Specialty Care Team Description 01/12/2023 Office Visit Dermatology Aicha Solorzano PA-C [address] [place] [address] [place] [phone] 01/30/2023 Office Visit Gynecology Obstetrics Backer, JOSH Tran [address] [place] [address] 12/10/2023 Office Visit Family Medicine Sheela Rose MD [address] [place] [address] [place] [address] Health Maintenance Due Date Last Done Comments [...] history documented in this encounter Care Teams Business Team Leader Relationship Specialty Start Date End Date Clifford Bose MD PCP - General Family Medicine 11/04/18 documented as of this encounter
--- OUTSIDE RECORDS SUMMARY | 2023-05-27 10:07 | External Medical Summary | Summary of Care ---
Author Name Unknown Organization [facility] Address [address] [place] [address] Phone [phone] Care Team Providers Care Servomechanism Assembler Name Role Phone Clifford Figueroa MD Primary Care Provider Reason for Visit * Reason Comments Follow Up Lesion on chest, christophe wing Encounter Details Date Type Department Care Team Description 01/12/2023 Office Visit Dermatology [address] [place] [address] Aicha Solorzano PA-C [address] [place] [address] [place] [address] H/O dysplastic nevus*; Neoplasm of uncertain behavior of skin Allergies Active Allergy Reactions Severity Noted Date Comments Amoxicillin-Pot Clavulanate Hives Medium 07/29/19 14 documented as of this encounter (statuses as of 01/12/2023) Medications Medication Sig Dispensed Refills Start Date End Date Status Venlafaxine HCl ER 37.5 MG Oral Capsule Extended Release 24 Hour (Effexor XR)Indications:Anxie ty TAKE ONE CAPSULE BY MOUTH EVERY DAY DO NOT CUT, CRUSH, OR CHEW 90 Capsule 1 08/05/2022 Active Vitamin 27-0.8 MG Oral Tablet Take by mouth. 0 Active documented as of this encounter (statuses as of 01/12/2023) Active Problems Problem Noted Date Normal 11/12/2022 [...] as of this encounter (statuses as of 01/12/2023) Resolved Problems Problem Noted Date Resolved Date Anxiety in , antepartum 12/24/2018 11/23/2019 Overview: At NOB taking Effexor, doing well, desires to continue , normal first 12/24/2018 11/23/19 20 Overview: Tdap vaccine administered 07/12/2019 Anais Stallings [...] as of this encounter (statuses as of 01/12/2023) Immunizations Name Administration Dates Next Due COVID-19 [...] as of this encounter Progress Notes * Aicha Solorzano PA-C - 01/12/2023 8:20 [...] grade) Reviewed, same day as visit, [facility] Dermatology lab work(s)/pathology report(s) as well as [...] Aicha Solorzano PA-C 01/12/2023 7:26 AM Ref: SELF[[id number]] NO STRE[address] ADDRESS AVAILABLE None (office) None (fax) PCP: CLIFFORD FIGUEROA [address] [place] [address] [place] [address] [phone] documented in this encounter Nursing Notes * Maribell Garner LPN - 01/12/2023 8:17 AM EDT Patient identified by full name and date of . Chief Complaint Patient presents with Follow Up Lesion on chest, growing documented in this encounter Plan of Treatment Upcoming Encounters Date Type Specialty Care Team Description 01/30/2023 Office Visit Gynecology Obstetrics Backer, JOSH Tran [address] [place] [address] 08/31/2023 Office Visit Dermatology Aicha Solorzano PA-C [address] [place] [address] [place] [address] 12/10/2023 Office Visit Family Medicine Sheela Rose MD [address] [place] [address] [place] [address] Pending Results Name Type Priority Associated Diagnoses [...] as of this encounter Visit Diagnoses Diagnosis H/O dysplastic nevus- Primary Personal history of diseases of skin and subcutaneous tissue Neoplasm of uncertain behavior of skin documented in this encounter Care Teams Servomechanism Assembler Relationship Specialty Start Date End Date Clifford Figueroa MD PCP - General Family Medicine 11/04/18 documented as of this encounter
--- NOTE | 2023-05-27 10:31 | History & Physical Report ---
Date of Service May 27, 2023 Assessment & Plan Admission and Anticipated Discharge Date Admission Date: May 27, 2023 History of Present Illness Chief Complaint: onset of labor Primary Care Provider: Clifford Bose MD 33 F P1001 at term admitted in active labor. GBS is negative. Allergies Allergy/AdvReac Type Severity Reaction Status Date / Time AUGMENTIN-SWELLING AND HIVES Allergy Unknown Rash Uncoded 05/27/23 07:44 Home Medications Medication Instructions Recorded Confirmed Type venlafaxine 37.5 mg 37.5 mg PO DAILY 08/10/19 05/27/23 History capsule,extended release 24 hr (Effexor XR) Patient History Medical History Dysplastic nevus of trunk Anxiety Normal endoscopy (~03/27/14) Encounter for diagnostic colonoscopy due to change in bowel habits (~03/27/14) Surgical History History of colposcopy with cervical biopsy History of extraction of renal calculus (~06/28/08) H/O wisdom tooth extraction (~11/24/07) Family History Aunt Breast cancer Father Hypertension Social History Smoking Status: Never smoker Second Hand Exposure: No; Do You Dip or Chew Tobacco: No; Hx Alcohol Use: No Hx Substance Use: No Preferred Language: Luxembourgish Communication Ability: Effective Child Protective Investigator Required: No Beliefs That Will Affect Care: None marital status: Current Living Situation: Family Current Living Situation Comment: Lives with and son current occupational status: unemployed current occupation: homemaker Other Information That Helps Us Care for You: No Feels Safe at Home: Yes Safety Concerns: Feels Safe At This Time Assistive Devices: None OB History x1 INDEPENDENT BEAUTY CONSULTANT History neg Review of Systems All systems reviewed & are unremarkable except as noted in HPI & below Physical Exam Constitutional: WD/WN, vitals as above Eyes: PERRL, conjunctivae normal, anicteric sclerae Cardiovascular: RRR, no murmur, no edema Gastrointestinal (Abdomen): Inspection/Auscultation: abdomen normal to inspection Musculoskeletal: Extremities: extremities normal to inspection Skin: no rashes, warm and dry Neurologic: patellar DTR's 2+ bilat, sensation intact Genitourinary: Manual OB Exam: + cervical dilation 4 cm, + cervical effacement 50% and + station high OB Exam Monitor Tracing: + external FHT monitor used, + external uterine monitor used and + category I Results & Data Vital Signs (Past 12 Hours) Vital Signs Temp Pulse Resp BP Pulse Ox 05/27/23 10:21 99 H 100 05/27/23 10:19 79 93 05/27/23 10:16 76 100 05/27/23 10:12 93 H 115/75 05/27/23 10:11 81 100 05/27/23 10:06 86 100 05/27/23 10:01 82 100 05/27/23 09:56 84 100 05/27/23 09:54 82 116/84 05/27/23 09:51 82 100 05/27/23 09:49 81 123/85 05/27/23 09:46 77 100 05/27/23 09:45 78 123/82 05/27/23 09:41 82 100 05/27/23 09:40 76 126/80 05/27/23 09:36 79 100 05/27/23 09:35 80 119/84 05/27/23 09:31 80 127/88 100 05/27/23 09:26 76 100 05/27/23 09:24 78 124/90 05/27/23 09:21 81 100 05/27/23 09:19 75 122/76 05/27/23 09:16 82 100 05/27/23 09:14 83 126/79 05/27/23 09:11 100 05/27/23 09:11 82 05/27/23 09:11 81 120/79 05/27/23 09:06 81 100 05/27/23 09:03 77 121/87 05/27/23 09:01 100 05/27/23 09:01 80 05/27/23 09:01 78 121/80 05/27/23 08:59 70 128/89 05/27/23 08:57 80 129/79 05/27/23 08:56 81 100 05/27/23 08:55 80 129/75 05/27/23 08:53 82 133/75 05/27/23 08:51 100 05/27/23 08:51 75 05/27/23 08:51 80 129/75 05/27/23 08:49 81 131/78 05/27/23 08:47 77 125/74 05/27/23 08:46 77 100 05/27/23 08:45 78 127/68 05/27/23 08:44 90 122/75 05/27/23 08:42 86 116/71 05/27/23 08:41 86 100 05/27/23 08:36 80 100 05/27/23 08:31 78 98 05/27/23 08:26 73 100 05/27/23 07:40 36.7 C 18 05/27/23 07:28 94 H 141/92 H Laboratory Results 05/27/23 08:02 WBC 10.31 RBC 4.23 Hgb 11.6 L Hct 34.7 L MCV 82.0 MCH 27.4 MCHC 33.4 RDW Std Deviation 36.6 RDW Coeff of Narinder 12.4 Plt Count 185 MPV 10.9 Monitoring External Monitor Cat 1
--- NOTE | 2023-05-27 15:16 | Labor Progress Brief Note ---
Date of Service May 27, 2023 Assessment & Plan Admission and Anticipated Discharge Date Admission Date: May 27, 2023 Physical Exam Genitourinary: Manual OB Exam: + cervical dilation 5 cm, + cervical effacement 80% and + station -1 OB Exam Monitor Tracing: + external FHT monitor used, + external uterine monitor used, + category I and + normal FHT variability AROM with clear fluid Results & Data Vital Signs (Past 12 Hours) Vital Signs Temp Pulse Resp BP Pulse Ox 05/27/23 15:12 80 05/27/23 15:12 105/63 05/27/23 15:12 90 101/60 05/27/23 15:11 81 100 05/27/23 15:06 76 100 05/27/23 15:01 81 100 05/27/23 14:59 101 H 93 05/27/23 14:58 81 137/85 05/27/23 14:56 72 100 05/27/23 14:51 73 100 05/27/23 14:46 75 100 05/27/23 14:43 71 133/85 05/27/23 14:41 75 100 05/27/23 14:36 74 100 05/27/23 14:31 74 100 05/27/23 14:26 100 05/27/23 14:26 90 05/27/23 14:26 93 H 138/93 05/27/23 14:21 73 99 05/27/23 14:16 77 100 05/27/23 14:12 71 125/85 05/27/23 14:11 72 99 05/27/23 14:06 72 99 05/27/23 14:01 71 100 05/27/23 14:00 20 05/27/23 14:00 20 05/27/23 13:56 75 130/75 99 05/27/23 13:51 74 100 05/27/23 13:46 80 100 05/27/23 13:42 69 129/84 05/27/23 13:41 73 99 05/27/23 13:36 71 99 05/27/23 13:31 73 100 05/27/23 13:30 20 05/27/23 13:30 20 05/27/23 13:26 77 126/84 100 05/27/23 13:21 76 99 05/27/23 13:16 75 99 05/27/23 13:13 73 133/84 12/13/23 13:11 73 99 05/27/23 13:06 75 98 05/27/23 13:01 71 98 05/27/23 13:00 18 05/27/23 13:00 18 05/27/23 12:57 75 128/77 05/27/23 12:56 75 100 05/27/23 12:51 80 99 05/27/23 12:46 79 100 05/27/23 12:42 75 131/80 05/27/23 12:41 76 99 05/27/23 12:36 79 100 05/27/23 12:31 77 99 05/27/23 12:30 20 05/27/23 12:30 20 05/27/23 12:27 75 125/78 05/27/23 12:26 77 100 05/27/23 12:21 78 100 05/27/23 12:16 77 100 05/27/23 12:11 76 114/77 100 05/27/23 12:06 78 100 05/27/23 12:01 75 20 100 05/27/23 11:56 100 05/27/23 11:56 77 05/27/23 11:56 76 113/76 05/27/23 11:51 81 100 05/27/23 11:46 74 99 05/27/23 11:42 72 115/76 05/27/23 11:41 76 100 05/27/23 11:36 81 100 05/27/23 11:31 75 100 05/27/23 11:30 20 05/27/23 11:30 20 05/27/23 11:27 82 121/73 05/27/23 11:26 82 100 05/27/23 11:21 83 100 05/27/23 11:16 83 100 05/27/23 11:12 85 112/68 05/27/23 11:11 83 100 05/27/23 11:06 78 100 05/27/23 11:01 36.8 C 80 100 05/27/23 11:00 18 05/27/23 11:00 18 05/27/23 10:56 100 05/27/23 10:56 84 05/27/23 10:56 83 95/55 L 05/27/23 10:51 82 100 05/27/23 10:46 79 100 05/27/23 10:42 78 115/77 05/27/23 10:41 83 100 05/27/23 10:36 78 100 05/27/23 10:31 81 100 05/27/23 10:30 18 05/27/23 10:26 80 113/79 100 05/27/23 10:21 99 H 100 05/27/23 10:19 79 93 05/27/23 10:16 76 100 05/27/23 10:15 16 05/27/23 10:12 93 H 115/75 05/27/23 10:11 81 100 05/27/23 10:06 86 100 05/27/23 10:01 82 100 05/27/23 10:00 18 05/27/23 09:56 84 100 05/27/23 09:54 82 116/84 05/27/23 09:51 82 100 05/27/23 09:49 81 123/85 05/27/23 09:46 77 100 05/27/23 09:45 20 05/27/23 09:45 78 123/82 05/27/23 09:41 82 100 05/27/23 09:40 76 126/80 05/27/23 09:36 79 100 05/27/23 09:35 80 119/84 05/27/23 09:31 80 127/88 100 05/27/23 09:30 18 05/27/23 09:26 76 100 05/27/23 09:24 78 124/90 05/27/23 09:21 81 100 05/27/23 09:19 75 122/76 05/27/23 09:16 82 100 05/27/23 09:15 20 05/27/23 09:14 83 126/79 05/27/23 09:11 100 05/27/23 09:11 82 05/27/23 09:11 81 120/79 05/27/23 09:06 81 100 05/27/23 09:03 77 121/87 05/27/23 09:01 100 05/27/23 09:01 80 05/27/23 09:01 78 121/80 05/27/23 09:00 18 05/27/23 08:59 70 128/89 05/27/23 08:57 80 129/79 05/27/23 08:56 81 100 05/27/23 08:55 80 129/75 05/27/23 08:53 82 133/75 05/27/23 08:51 100 05/27/23 08:51 75 05/27/23 08:51 80 129/75 05/27/23 08:49 81 131/78 05/27/23 08:48 20 05/27/23 08:47 77 125/74 05/27/23 08:46 77 100 05/27/23 08:45 78 127/68 05/27/23 08:44 90 122/75 05/27/23 08:42 86 116/71 05/27/23 08:41 86 100 05/27/23 08:36 80 100 05/27/23 08:31 78 98 05/27/23 08:26 73 100 05/27/23 07:40 36.7 C 18 05/27/23 07:28 94 H 141/92 H
--- NOTE | 2023-05-27 17:10 | Delivery Summary ---
Vaginal Delivery Summary Date of Service May 27, 2023 Vaginal Delivery Summary live male DEVON with tight nuchal cord x1 reduced at delivery. Apgars and weight pending. Cord blood obtained followed by spontaneous delivery of intact placenta. No tears. EBL 250 ml. Final sponge and instrument count are correct. Mother and baby stable.
[2023-05-27] MEDS ORDERED: ACETAMINOPHEN 325 MG TAB PO PRN (17:13)
[2023-05-27] MEDS ORDERED: bisacodyL 10 MG SUPP PR PRN (17:13)
[2023-05-27] MEDS ORDERED: HYDROCORTISONE ACETATE 25 MG SUPP PR PRN (17:13)
[2023-05-27] MEDS ORDERED: DIPHTHERIA/TETANUS/PERTUSSIS Vaccine (Tdap, Age 7+yrs) 0.5mL SYR/VL IM ONE (17:13)
[2023-05-27] MEDS ORDERED: BENZOCAINE 20% SPRY 85 APPLN/85 GM CAN EXT PRN (17:13)
[2023-05-27] MEDS ORDERED: IBUPROFEN 600 MG TAB PO PRN (17:13)
--- NOTE | 2023-05-27 18:27 | Anesthesia Procedure Note ---
Date of Service May 27, 2023 Anesthesia Post Epidural Note Vital Signs Vital Signs: Temp Pulse Resp BP Pulse Ox 36.6 C 75 20 147/67 H 99 05/27/23 17:00 05/27/23 18:16 05/27/23 17:00 05/27/23 18:16 05/27/23 16:52 Pain Intensity Abdomen: Pain Intensity: 3 Notes Mental Status: alert / awake / arousable and participated in evaluation Nausea / Vomiting: adequately controlled Pain: adequately controlled Airway Patency, RR, SpO2: stable & adequate BP & HR: stable & adequate Hydration State: stable & adequate Neuraxial Anesthesia: was administered and sensory block resolved Anesthetic Complications: no major complications apparent and Pt Satisfied with anesthetic care Epidural: Removed without complications and With tip intact
[2023-05-27] MEDS: DOCUSATE SODIUM 100 MG CAP PO SCH (21:12)
[2023-05-28 06:49] LABS: Hematocrit (blood only) 30.6 % (37.0-47.0); Hemoglobin 9.9 g/dl (12.0-16.0); Mean Corpuscular Hemoglobin 27.1 pg (25.0-34.0); Mean Corpuscular Hgb Conc 32.4 g/dL (32.0-36.0); Mean Corpuscular Volume 83.8 fL (80.0-100.0); Mean Platelet Volume 11.4 fL (9.4-12.4); Platelet Count 156 K/uL (130-400); RDW Coefficient of Variation 12.5 % (11.5-14.5); RDW Standard Deviation 37.8 fL (36.4-46.3); Red Blood Count 3.65 M/uL (4.20-5.40); White Blood Count 10.78 K/ul (4.8-10.8)
[2023-05-28] MEDS ORDERED: PRENATAL VITAMIN 1 TAB PO SCH (08:00)
[2023-05-28] MEDS: DOCUSATE SODIUM 100 MG CAP PO SCH (08:06)
--- NOTE | 2023-05-28 08:53 | Obstetrical Progress Note ---
Date of Service May 28, 2023 Assessment & Plan Admission and Anticipated Discharge Date Admission Date: May 27, 2023 Subjective Patient is seen and examined. She feels well, no complaints. Ambulating without dizziness Voiding without difficulty Tolerating regular diet with out N&V Bleeding is minimal No fever/ chills/ CP/ SOB/ N&V/ Leg pain Breast feeding without problems Vital Signs Temp Pulse Pulse Resp BP BP Pulse Ox 05/28/23 08:00 36.7 C 77 18 126/74 05/28/23 04:15 36.6 C 69 18 111/70 98 05/27/23 23:05 36.7 C 71 18 129/78 100 05/27/23 21:15 36.7 C 76 18 127/78 100 O2 Del Method 05/28/23 08:00 Room Air 05/28/23 04:15 Room Air 05/27/23 23:05 Room Air 05/27/23 21:15 Room Air Lab Results 05/27/23 05/28/23 Range/Units 08:02 06:10 WBC 10.31 10.78 (4.8-10.8) K/ul RBC 4.23 3.65 L (4.20-5.40) M/uL Hgb 11.6 L 9.9 L (12.0-16.0) g/dl Hct 34.7 L 30.6 L (37.0-47.0) % MCV 82.0 83.8 (80.0-100.0) fL MCH 27.4 27.1 (25.0-34.0) pg MCHC 33.4 32.4 (32.0-36.0) g/dL RDW Std Deviation 36.6 37.8 (36.4-46.3) fL RDW Coeff of Narinder 12.4 12.5 (11.5-14.5) % Plt Count 185 156 (130-400) K/uL MPV 10.9 11.4 (9.4-12.4) fL PE: General: Alert, orientedx3, NAD Abd: soft, NT, fundus firm, below Umbilicus Perineum intact, Lochia rubra minimal Ext; NT, no edema AP: 33 yo s/p , ppd# 1 VSS Afebrile doing well Continue routine care All questions were answered Desires D/C home tonight Results & Data Vital Signs (Past 12 Hours) Vital Signs Temp Pulse Pulse Resp BP BP Pulse Ox 05/28/23 08:00 36.7 C 77 18 126/74 05/28/23 04:15 36.6 C 69 18 111/70 98 05/27/23 23:05 36.7 C 71 18 129/78 100 05/27/23 21:15 36.7 C 76 18 127/78 100 O2 Del Method 05/28/23 08:00 Room Air 05/28/23 04:15 Room Air 05/27/23 23:05 Room Air 05/27/23 21:15 Room Air
[2023-05-28] MEDS ORDERED: VENLAFAXINE HCL XR 37.5 MG CAPXR PO SCH (09:00)
[2023-05-28] MEDS ORDERED: bisacodyL 5 MG TABEC PO SCH (20:00)
--- NOTE | 2023-06-01 12:31 | Coding Query ---
CODING QUERY To promote full compliance with coding requirements relating to patient care, provider participation is requested in all cases of paralegal secretary uncertainty. Please assist us with the question(s) below: Coding Question(s): Please specify below, the number of weeks gestation of the upon admission: ( x) Specified number of weeks of gestation. [place] specify___40.4 ( ) Unknown/Unspecified number of weeks of gestation Physician's Response(s): Thank you Dianna Godinez Principal Diagnosis: "that condition established after study, to be chiefly responsible for occasioning the admission of the patient to the hospital for care." Co-Existing Principal Diagnosis: "when two or more diagnoses equally meet the criteria for principal diagnosis as determined by the circumstances of admission, diagnostic work up, and/or therapy provided, and the Alphabetic Index, Tabular List, or another coding guideline does not provide sequencing direction, any one of the diagnoses may be sequenced first." "When the physician has documented what appears to be a current diagnosis in the body of the record, but has not included the diagnosis in the final diagnostic statement, the physician should be asked whether the diagnosis should be added." (Source Coding [facility] 2 QTR90. p3-4) ANUP
== END 2023-05-28 17:21 | disposition home or self-care (01) | DRG 807 ==
LOC: 4S1 07:16 → 4E2 20:08